=== PATIENT | male | born 1995 | race American Indian/Alaskan Native ===

== ENCOUNTER 2019-12-14 12:18 | Emergency (ER) | payer SELFPAY ==
[2019-12-14] MEDS ORDERED: Ketorolac 60 MG/2 ML SDV IM ONE (12:48)
[2019-12-14] MEDS ORDERED: Diazepam 5 MG Tab PO ONE (12:48)
--- NOTE | 2019-12-14 13:13 | EDM.PDOC ---
ED HPI GENERAL MEDICAL PROBLEM - General Chief Complaint: Back Pain or Injury Stated Complaint: LOWER BACK PAIN Time Seen by Provider: 12/14/19 12:45 Source of Information: Reports: Patient - History of Present Illness INITIAL COMMENTS - FREE TEXT/NARRATIVE: Dao is a 24 y/o male who comes to the ER today with lower back pain. The pain started on Thursday when he slipped while walking. He has since then been having spasm like pain in his lower back and it hurts to move. He has taken one dose of Tylenol that has not helped much. Also been using a heating pad, but not much help. Lower Back Pain Score (Numeric/FACES): 7 - Related Data Allergies Allergy/AdvReac Type Severity Reaction Status Date / Time No Known Allergies Allergy Verified 12/14/19 12:33 Home Meds: Home Meds Cyclobenzaprine [Flexeril] 10 mg PO TID PRN #30 tab 12/14/19 [Rx] Ibuprofen 800 mg PO Q8H #90 tablet 12/14/19 [Rx] Past Medical History - Past Health History Medical/Surgical History: Denies Medical/Surgical History Social & Family History - Tobacco Use Smoking Status *Q: Current Every Day Smoker Years of Tobacco use: 7 Packs/Tins Daily: 0.5 - Recreational Drug Use Recreational Drug Use: No Review of Systems - Review of Systems Review Of Systems: See Below Constitutional: Reports: No Symptoms Eyes: Reports: No Symptoms Ears: Reports: No Symptoms Nose: Reports: No Symptoms Mouth/Throat: Reports: No Symptoms Respiratory: Reports: No Symptoms Cardiovascular: Reports: No Symptoms GI/Abdominal: Reports: No Symptoms Genitourinary: Reports: No Symptoms Musculoskeletal: Reports: Back Pain, Muscle Pain Skin: Reports: No Symptoms Neurological: Reports: No Symptoms. Denies: Numbness, Tingling, Weakness Psychiatric: Reports: No Symptoms ED EXAM, GENERAL - Physical Exam Exam: See Below General Appearance: Alert, WD/WN, No Apparent Distress Ears: Normal External Exam Nose: Normal Inspection Throat/Mouth: Normal Voice, No Airway Compromise Head: Atraumatic, Normocephalic Neck: Normal Inspection Respiratory/Chest: No Respiratory Distress Cardiovascular: Regular Rate, Rhythm GI/Abdominal: Soft, Non-Tender (Male) Exam: Deferred Rectal (Males) Exam: Deferred Back Exam: Muscle Spasm (lower bilateral back region, + muscle tightness), Other (Able to walk, appears to have back when walking). No: Vertebral Tenderness Extremities: Normal Inspection, Normal Range of Motion, Normal Capillary Refill Neurological: Alert, Oriented, CN II-XII Intact, Normal Cognition Psychiatric: Normal Affect, Normal Mood Skin Exam: Warm, Intact, Normal Color Lymphatic: No Adenopathy Course - Vital Signs Text/Narrative:: The patient was seen by the FEATHER EDGER. He was given Toradol 60 mg IM and Valum 10mg po. 1330 Patient rested and reported improvement in his pain and spasms. Discussed instructions for home care. Reviewed warning sx and when to return. Will treat him with muscle relaxers and NSAIDs and if he is not improving in the next 5-7 days, he can return or see his PCP and we can consider imaging at that time. He left the ER in stable condition. Last Recorded V/S: Last Vital Signs Temp 36.9 C 12/14/19 12:25 Pulse 86 12/14/19 12:25 Resp 16 12/14/19 12:25 BP 143/87 H 12/14/19 12:25 Pulse Ox 98 12/14/19 12:25 - Orders/Labs/Meds Meds: Medications Discontinued Medications Generic Name Dose Route Start Last Admin Trade Name Freq PRN Reason Stop Dose Admin Diazepam 10 mg 12/14/19 12:48 12/14/19 12:54 Valium. PO 12/14/19 12:49 10 mg ONETIME ONE Administration Ketorolac Tromethamine 60 mg 12/14/19 12:48 12/14/19 12:54 Toradol IM 12/14/19 12:49 60 mg ONETIME ONE Administration Departure - Departure Time of Disposition: 13:30 Disposition: Home, Self-Care 01 Condition: Good Clinical Impression: Muscle spasm of back - Discharge Information *PRESCRIPTION DRUG MONITORING PROGRAM REVIEWED*: Not Applicable *COPY OF PRESCRIPTION DRUG MONITORING REPORT IN PATIENT TABATHA: Not Applicable Prescriptions: Cyclobenzaprine [Flexeril] 10 mg PO TID PRN #30 tab PRN Reason: Muscle Spasm Ibuprofen 800 mg PO Q8H #90 tablet Instructions: Muscle Cramps and Spasms, Muscle Strain, [id number] Forms: ED Department Discharge, ED Return to Work/School Form Additional Instructions: -Ibuprofen 800mg oral very 8 hours for the next 5-7 days then as needed #90(Rx) -Cyclobenzaprine 10mg oral every 8 hours as needed for muscle spasms #30(Rx) This medication may make you drowsy. -Apply ice or heat to the lower back region or alternate the two. -Rest as needed, but light walking and gentle stretching may help you feel better sooner. -Consider massage therapy or a chiropractic treatment -If you are not improving, establish care with a primary care provider for further evaluation. Sepsis Event Note - Evaluation Sepsis Screening Result: No Definite Risk - Focused Exam Vital Signs: Vital Signs Temp Pulse Resp BP Pulse Ox 12/14/19 12:25 36.9 C 86 16 143/87 H 98 Date Exam was Performed: 12/14/19 Time Exam was Performed: 12:55
== END 2019-12-14 13:49 | disposition home or self-care (01) ==
LOC: VM.ED 12:18
DX: M62.830 Muscle spasm of back (principal); F17.210 Nicotine dependence, cigarettes, uncomplicated
CPT/HCPCS: 96372; 99283; A9270; J1885

== ENCOUNTER 2020-01-03 15:10 | Emergency (ER) | payer SELFPAY ==
[2020-01-03] MEDS ORDERED: Morphine 4 MG/ML Syringe IVPUSH ONE (15:20)
[2020-01-03] MEDS ORDERED: Cyclobenzaprine 10 MG Tab PO ONE (15:21)
--- NOTE | 2020-01-03 16:28 | CT ---
[id number] CT/CT Lumbar Spine WO IV Exam: CT Lumbar Spine WO IV Indication:FALL,RADICULOPATHY ON RIGHT. Comparison: No prior imaging for comparison. Discussion: No acute fracture or compression deformity. Chronic mild anterior wedging of T12. No spondylolisthesis. Spondylosis at L3-4 through L5-S1 with degenerative disc disease, disc osteophyte complex formation, and intervertebral disc height loss. Additionally, there is a possible right paracentral/foraminal disc protrusion at L4-5. Correlate for right L4 radiculopathy. If findings are clinically equivocal, noncontrast MRI of the lumbar spine is recommended. Visualized viscera in the lower abdomen and pelvis is unremarkable. Impression: No acute fracture or compression deformity. Lumbar spondylosis with a possible right L4-5 paracentral/foraminal disc protrusion described above with recommendations. Frank Cutler MD 01/03/20 [id number] Thank you for allowing us to participate in the care of your patient.
[2020-01-03] MEDS ORDERED: methylPREDNISolone Sodium Succinate 125 MG/2 ML SDV IVPUSH ONE (16:34)
--- NOTE | 2020-01-03 16:43 | EDM.PDOC ---
ED HPI GENERAL MEDICAL PROBLEM - General Chief Complaint: Back Pain or Injury Stated Complaint: BACK PAIN Time Seen by Provider: 01/03/20 15:20 Source of Information: Reports: Patient History Limitations: Reports: No Limitations - History of Present Illness INITIAL COMMENTS - FREE TEXT/NARRATIVE: Pt presents with severe low back pain Began 2 weeks ago after slipped and fell and landed on his back Pain is progressively worse Now extends down right leg Pain goes down to level of knee No previous hx/o same Onset: Gradual Duration: Day(s): Location: Reports: Back Quality: Reports: Stabbing Severity: Severe Improves with: Reports: Immobilization Worsens with: Reports: Movement Context: Reports: Trauma Treatments [employer]: Reports: NSAIDS Right Lower Back Pain Score (Numeric/FACES): 10 - Related Data Allergies Allergy/AdvReac Type Severity Reaction Status Date / Time No Known Allergies Allergy Verified 01/03/20 15:34 Home Meds: Home Meds Cyclobenzaprine [Flexeril] 10 mg PO TID PRN #30 tab 12/14/19 [Rx] Ibuprofen 800 mg PO Q8H #90 tablet 12/14/19 [Rx] Past Medical History - Past Health History Medical/Surgical History: Denies Medical/Surgical History Social & Family History - Tobacco Use Smoking Status *Q: Current Every Day Smoker Years of Tobacco use: 10 Packs/Tins Daily: 0.5 - Alcohol Use Days Per Week of Alcohol Use: 5 Number of Drinks Per Day: 3 Total Drinks Per Week: 15 - Recreational Drug Use Recreational Drug Use: Yes Drug Use in Last 12 Months: Yes Recreational Drug Type: Reports: Marijuana/Hashish Recreational Drug Use Frequency: Socially ED ROS GENERAL - Review of Systems Review Of Systems: See Below Musculoskeletal: Reports: Back Pain Neurological: Reports: Difficulty Walking ED EXAM,LOWER BACK PAIN/INJURY - Physical Exam Exam: See Below Back Exam: Muscle Spasm, Paraspinal Tenderness Neurological: Straight Leg Raise (R), Difficulty Walking Course - Vital Signs Last Recorded V/S: Last Vital Signs Temp 98.5 F 01/03/20 15:41 Pulse 108 H 01/03/20 15:41 Resp 16 01/03/20 15:41 BP 135/69 01/03/20 15:41 Pulse Ox 97 01/03/20 15:41 - Orders/Labs/Meds Meds: Medications Discontinued Medications Generic Name Dose Route Start Last Admin Trade Name Patt PRN Reason Stop Dose Admin Cyclobenzaprine HCl 10 mg 01/03/20 15:21 01/03/20 15:36 Flexeril PO 01/03/20 15:22 10 mg ONETIME ONE Administration Methylprednisolone Sodium Succinate 125 mg 01/03/20 16:34 Solu-Medrol IVPUSH 01/03/20 16:35 ONETIME ONE Morphine Sulfate 4 mg 01/03/20 15:20 01/03/20 15:36 Morphine IVPUSH 01/03/20 15:21 4 mg ONETIME ONE Administration - Re-Assessments/Exams Free Text/Narrative Re-Assessment/Exam: 01/03/20 16:[address] report Pt given IV 4 mg Morphine, 10 mg PO Flexeril and Solu-medrol 125 mg IV in ER Departure - Departure Time of Disposition: 17:00 Disposition: Home, Self-Care 01 Clinical Impression: Lumbar pain with radiation down right leg - Discharge Information *PRESCRIPTION DRUG MONITORING PROGRAM REVIEWED*: Not Applicable *COPY OF PRESCRIPTION DRUG MONITORING REPORT IN PATIENT TABATHA: Not Applicable Instructions: Acute Back Pain, Adult, Radicular Pain Referrals: PCP,None [Primary Care Provider] - Additional Instructions: Follow up in clinic Rx Medrol Dose Ji Rx Flexeril 10 mg TID prn spasm Rx Hydrocodone 5/325 1 pill every 6 hours for pain Sepsis Event Note - Evaluation Sepsis Screening Result: No Definite Risk - Focused Exam Vital Signs: Vital Signs Temp Pulse Resp BP Pulse Ox 01/03/20 15:41 98.5 F 108 H 16 135/69 97 Date Exam was Performed: 01/03/20 Time Exam was Performed: 16:37
== END 2020-01-03 17:04 | disposition home or self-care (01) ==
LOC: EEVIPCON 15:10 → VM.ED 15:10 → SUPCPDRO 15:10 → VM.ED 17:04
DX: M54.16 Radiculopathy, lumbar region (principal); F17.210 Nicotine dependence, cigarettes, uncomplicated
CPT/HCPCS: 72131; 96374; 96375; 99283-25; 99283-GF; A9270-GY; J2270; J2930

== ENCOUNTER 2020-02-02 06:07 | Emergency (ER) | payer MEDICAID, OTHER ==
[2020-02-02] MEDS: Lidocaine 1% 30 ML SDV INJECT ONE (06:50)
[2020-02-02] MEDS: Bupivacaine 0.5% 30 ML SDV INJECT PRN (06:50)
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
[2020-02-02] MEDS: Diphtheria,Pertussis(Acell),Tetanus Vaccine 0.5 ML Syringe IM ONE (07:47)
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
== END 2020-02-02 07:40 | disposition home or self-care (01) ==
LOC: VM.ED 06:07
DX: S61.412A Laceration without foreign body of left hand, initial encounter (principal); S60.221A Contusion of right hand, initial encounter; F17.210 Nicotine dependence, cigarettes, uncomplicated; F10.920 Alcohol use, unspecified with intoxication, uncomplicated; Z23 Encounter for immunization; W22.01XA Walked into wall, initial encounter
CPT/HCPCS: 12002; 73130-LT; 73130-RT; 90471; 90715; 99283-25; J2001; J3490

== ENCOUNTER 2020-09-15 03:55 | Emergency (ER) | payer SELFPAY ==
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
== END 2020-09-15 04:20 | disposition other institution (70) ==
LOC: VM.ED 03:55
DX: S00.83XA Contusion of other part of head, initial encounter (principal); S60.512A Abrasion of left hand, initial encounter; S60.511A Abrasion of right hand, initial encounter; W10.9XXA Fall (on) (from) unspecified stairs and steps, initial encounter
CPT/HCPCS: 99283; 99284

== ENCOUNTER 2021-07-08 04:29 | Inpatient (IN) | payer MEDICAID ==
[2021-07-08] MEDS ORDERED: Ondansetron 4 MG/2 ML SDV IVPUSH ONE (04:31)
[2021-07-08] MEDS ORDERED: HYDROmorphone 1 MG/ML Syringe IVPUSH ONE (04:31)
[2021-07-08] MEDS ORDERED: Sodium Chloride 0.9% 1,000 ML IV SCH (04:45)
[2021-07-08 05:06] LABS: CHLORIDE,CL 103 mmol/L (98-107); SODIUM,NA 140 mmol/L (136-145)
[2021-07-08 05:13] LABS: ANION GAP 12.2 mmol/L (5-15)
[2021-07-08] MEDS ORDERED: Morphine 4 MG/ML Syringe IVPUSH ONE ×2 (05:43→06:56)
--- NOTE | 2021-07-08 06:33 | EDM.PDOC ---
ED HPI GENERAL MEDICAL PROBLEM - General Chief Complaint: Abdominal Pain Stated Complaint: abdominal pain - severe Time Seen by Provider: 07/08/21 04:29 Source of Information: Reports: Patient History Limitations: Reports: No Limitations - History of Present Illness INITIAL COMMENTS - FREE TEXT/NARRATIVE: Pt. presents to ER with complaints of severe upper abdominal pain that started 2 days ago. Pt. has a history of alcoholism and is a daily drinker. He states that he drinks large amounts of vodka daily, the last time was 2 days ago. It was at that time that the discomfort started. He states that he does start to feel agitated and get "the shakes" if he does not drink. Pt. states that he has never had pain like this in the past. Pt. denies any fever or chills. No shortness of breath or substernal chest pain. Denies any bloody or tarry stools. He denies any lightheadedness or weakness. Onset: Today Onset Date: 07/06/21 Location: Reports: Abdomen Quality: Reports: Burning, Sharp, Stabbing Severity: Severe Abdomen Pain Score (Numeric/FACES): 10 - Related Data Allergies Allergy/AdvReac Type Severity Reaction Status Date / Time No Known Allergies Allergy Verified 09/15/20 04:41 Home Meds: Home Meds . [No Known Home Meds] 09/15/20 [History] Past Medical History - Past Health History Medical/Surgical History: Denies Medical/Surgical History Musculoskeletal History: Reports: Back Pain, Chronic Social & Family History - Tobacco Use Tobacco Use Status *Q: Current Every Day Tobacco User Years of Tobacco use: 10 Packs/Tins Daily: 1 - Alcohol Use Days Per Week of Alcohol Use: 7 Number of Drinks Per Day: 3 Total Drinks Per Week: 21 Date of Last Drink: 07/07/21 - Recreational Drug Use Recreational Drug Use: No ED ROS GENERAL - Review of Systems Review Of Systems: See Below Constitutional: Reports: No Symptoms, Decreased Appetite HEENT: Reports: No Symptoms Respiratory: Reports: No Symptoms Cardiovascular: Reports: No Symptoms Endocrine: Reports: No Symptoms GI/Abdominal: Reports: Abdominal Pain, Anorexia, Decreased Appetite : Reports: No Symptoms Musculoskeletal: Reports: No Symptoms Skin: Reports: No Symptoms Neurological: Reports: No Symptoms Psychiatric: Reports: No Symptoms Hematologic/Lymphatic: Reports: No Symptoms Immunologic: Reports: No Symptoms ED EXAM, GENERAL - Physical Exam Exam: See Below Exam Limited By: No Limitations General Appearance: Alert, WD/WN, No Apparent Distress Nose: Normal Inspection, Normal Mucosa, No Blood Throat/Mouth: Normal Inspection, Normal Lips, Normal Teeth, Normal Gums, Normal Oropharynx, Normal Voice, No Airway Compromise Head: Atraumatic, Normocephalic Neck: Normal Inspection, Supple, Non-Tender, Full Range of Motion Respiratory/Chest: No Respiratory Distress, Lungs Clear, Normal Breath Sounds, No Accessory Muscle Use, Chest Non-Tender Cardiovascular: Normal Peripheral Pulses, Regular Rate, Rhythm, No Edema, No JVD Peripheral Pulses: 4+: Radial (L) GI/Abdominal: Normal Bowel Sounds, Guarding, Rigid, Tender (Male) Exam: Deferred Rectal (Males) Exam: Deferred Extremities: Normal Inspection, Normal Range of Motion, Non-Tender, No Pedal Edema, Normal Capillary Refill Neurological: Alert, Oriented, CN II-XII Intact, Normal Cognition, Normal Gait, Normal Reflexes, No Motor/Sensory Deficits Psychiatric: Normal Affect, Normal Mood Skin Exam: Warm, Dry, Intact, Normal Color, No Rash Course - Vital Signs Last Recorded V/S: Last Vital Signs Temp 36.6 C 07/08/21 06:03 Pulse 73 07/08/21 09:30 Resp 12 07/08/21 09:30 BP 134/100 H 07/08/21 06:03 Pulse Ox 97 07/08/21 09:30 - Orders/Labs/Meds Orders: Active Orders 24 hr Category Date Time Status Abdomen Pelvis w Cont [CT] Stat Exams 07/08/21 05:16 Ordered Sodium Chloride 0.9% [Saline Flush] Med 07/08/21 04:30 Active 10 ml FLUSH ASDIRECTED PRN Peripheral IV Insertion Adult [OM.PC] Routine Oth 07/08/21 04:30 Ordered Medication Orders Flumazenil (Flumazenil 0.1 Mg/Ml 5 Ml Mdv) 0.2 mg IVPUSH ASDIRECTED PRN PRN Reason: Respiratory Depression Hydromorphone HCl (Hydromorphone 1 Mg/Ml Syringe) 1 mg IVPUSH Q4H PRN PRN Reason: Pain Last Admin: 07/08/21 09:20 Dose: 1 mg Documented by: ROSE MARIE Magnesium Sulfate 2 gm/ Premix 50 mls @ 25 mls/hr IV ONETIME ONE Stop: 07/08/21 10:30 Last Admin: 07/08/21 09:34 Dose: 25 mls/hr Documented by: ROSE MARIE Potassium Chloride/Sodium Chloride (Normal Saline With 20 Meq Kcl) 1,000 mls @ 125 mls/hr IV ASDIRECTED JAGUAR Lorazepam (Lorazepam 2 Mg/Ml Sdv) 0.5 mg IVPUSH Q4H PRN PRN Reason: Anxiety Ondansetron HCl (Ondansetron 4 Mg/2 Ml Sdv) 4 mg IVPUSH Q8H PRN PRN Reason: Nausea Pantoprazole Sodium (Pantoprazole 40 Mg Vial) 40 mg IVPUSH DAILY [facility] Last Admin: 07/08/21 09:25 Dose: 40 mg Documented by: ROSE MARIE Sodium Chloride (Sodium Chloride 0.9% 10 Ml Syringe) 10 ml FLUSH ASDIRECTED PRN PRN Reason: Keep Vein Open Labs: Laboratory Tests 07/08/21 07/08/21 07/08/21 Range/Units 04:30 04:30 04:30 WBC 12.0 H (4.0-10.0) x10^3/uL RBC 5.28 (4.5-6.0) x10^6/uL Hgb 17.1 (14.0-18.0) g/dL Hct 48.4 (40.0-52.0) % MCV 91.7 (78.0-93.0) fL MCH 32.4 H (26.0-32.0) pg MCHC 35.3 (32.0-36.0) g/dL RDW Coeff of Claudio 12.2 (10.0-15.0) % Plt Count 186 (130-400) x10^3/uL Immature Gran % (Auto) 0.20 (0.00-0.43) % Neut % (Auto) 68.9 (50.0-80.0) % Lymph % (Auto) 17.9 L (25.0-50.0) % Polk % (Auto) 9.8 (2.0-11.0) % Eos % (Auto) 2.9 (0.0-4.0) % Baso % (Auto) 0.3 (0.2-1.2) % Neut # (Auto) 8.3 H (1.8-7.7) x10^3/uL Lymph # (Auto) 2.2 (1.0-4.8) x10^3/uL Polk # (Auto) 1.2 H (0.0-0.8) x10^3/uL Eos # (Auto) 0.4 (0.0-0.5) x10^3/uL Baso # (Auto) 0.0 (0.0-0.2) x10^3/uL Immature Gran # (Auto) 0.02 (0.00-0.07) x10^3/uL PT 10.8 (9.9-12.5) SEC INR 1.0 L (2.0-3.5) APTT (25.6-32.8) SEC Sodium 140 (136-145) mmol/L Potassium 3.2 L (3.5-5.1) mmol/L Chloride 103 (98-107) mmol/L Carbon Dioxide 28 (21-32) mmol/L Anion Gap 12.2 (5-15) mmol/L BUN 9 (7-18) mg/dL Creatinine 0.9 (0.70-1.30) mg/dL Est Cr Clr Drug Dosing TNP Estimated GFR (MDRD) > 60 Glucose 106 H (70-99) mg/dL Lactic Acid (0.4-2.0) mmol/L Calcium 8.9 (8.5-10.1) mg/dL Corrected Calcium 9.1 (8.5-10.1) mg/dL Phosphorus 3.4 (2.6-4.7) mg/dL Magnesium 1.5 L (1.8-2.4) mg/dL Total Bilirubin 1.5 H (0.2-1.0) mg/dL AST 63 H (15-37) U/L ALT 106 H (16-63) U/L Alkaline Phosphatase 99 (46-116) U/L C-Reactive Protein 3.8 H (<=0.9) mg/dL Total Protein 7.1 (6.4-8.2) g/dL Albumin 3.8 (3.4-5.0) g/dL Globulin 3.3 Albumin/Globulin Ratio 1.15 Lipase 7193 H (73-393) U/L Ethyl Alcohol < 3 (0-3) mg/dL 07/08/21 07/08/21 Range/Units 04:30 04:30 WBC (4.0-10.0) x10^3/uL RBC (4.5-6.0) x10^6/uL Hgb (14.0-18.0) g/dL Hct (40.0-52.0) % MCV (78.0-93.0) fL MCH (26.0-32.0) pg MCHC (32.0-36.0) g/dL RDW Coeff of Claudio (10.0-15.0) % Plt Count (130-400) x10^3/uL Immature Gran % (Auto) (0.00-0.43) % Neut % (Auto) (50.0-80.0) % Lymph % (Auto) (25.0-50.0) % Polk % (Auto) (2.0-11.0) % Eos % (Auto) (0.0-4.0) % Baso % (Auto) (0.2-1.2) % Neut # (Auto) (1.8-7.7) x10^3/uL Lymph # (Auto) (1.0-4.8) x10^3/uL Polk # (Auto) (0.0-0.8) x10^3/uL Eos # (Auto) (0.0-0.5) x10^3/uL Baso # (Auto) (0.0-0.2) x10^3/uL Immature Gran # (Auto) (0.00-0.07) x10^3/uL PT (9.9-12.5) SEC INR (2.0-3.5) APTT 26.5 (25.6-32.8) SEC Sodium (136-145) mmol/L Potassium (3.5-5.1) mmol/L Chloride (98-107) mmol/L Carbon Dioxide (21-32) mmol/L Anion Gap (5-15) mmol/L BUN (7-18) mg/dL Creatinine (0.70-1.30) mg/dL Est Cr Clr Drug Dosing Estimated GFR (MDRD) Glucose (70-99) mg/dL Lactic Acid 1.4 (0.4-2.0) mmol/L Calcium (8.5-10.1) mg/dL Corrected Calcium (8.5-10.1) mg/dL Phosphorus (2.6-4.7) mg/dL Magnesium (1.8-2.4) mg/dL Total Bilirubin (0.2-1.0) mg/dL AST (15-37) U/L ALT (16-63) U/L Alkaline Phosphatase (46-116) U/L C-Reactive Protein (<=0.9) mg/dL Total Protein (6.4-8.2) g/dL Albumin (3.4-5.0) g/dL Globulin Albumin/Globulin Ratio Lipase (73-393) U/L Ethyl Alcohol (0-3) mg/dL Meds: Medications Generic Name Dose Route Start Last Admin Trade Name Freq PRN Reason Stop Dose Admin Flumazenil 0.2 mg 07/08/21 08:36 Flumazenil 0.1 Mg/Ml 5 Ml Mdv IVPUSH ASDIRECTED PRN Respiratory Depression Hydromorphone HCl 1 mg 07/08/21 08:33 07/08/21 09:20 Hydromorphone 1 Mg/Ml Syringe IVPUSH 1 mg Q4H PRN Administration Pain Magnesium Sulfate 2 gm/ Premix 50 mls @ 25 mls/hr 07/08/21 08:31 07/08/21 09:34 IV 07/08/21 10:30 25 mls/hr ONETIME ONE Administration Potassium Chloride/Sodium Chloride 1,000 mls @ 125 mls/hr 07/08/21 08:45 Normal Saline With 20 Meq Kcl IV ASDIRECTED JAGUAR Lorazepam 0.5 mg 07/08/21 08:36 Lorazepam 2 Mg/Ml Sdv IVPUSH Q4H PRN Anxiety Ondansetron HCl 4 mg 07/08/21 08:33 Ondansetron 4 Mg/2 Ml Sdv IVPUSH Q8H PRN Nausea Pantoprazole Sodium 40 mg 07/08/21 09:15 07/08/21 09:25 Pantoprazole 40 Mg Vial IVPUSH 40 mg DAILY JAGUAR Administration Sodium Chloride 10 ml 07/08/21 04:30 Sodium Chloride 0.9% 10 Ml Syringe FLUSH ASDIRECTED PRN Keep Vein Open Discontinued Medications Generic Name Dose Route Start Last Admin Trade Name Patt PRN Reason Stop Dose Admin Hydromorphone HCl 1 mg 07/08/21 04:31 07/08/21 04:45 Hydromorphone 1 Mg/Ml Syringe IVPUSH 07/08/21 04:32 1 mg ONETIME ONE Administration Sodium Chloride 1,000 mls @ 500 mls/hr 07/08/21 04:45 Normal Saline IV ASDIRECTED JAGUAR Ketorolac Tromethamine 15 mg 07/08/21 06:49 07/08/21 07:03 Ketorolac 15 Mg/Ml Sdv IVPUSH 07/08/21 06:50 15 mg ONETIME ONE Administration Morphine Sulfate 4 mg 07/08/21 05:43 07/08/21 06:00 Morphine 4 Mg/Ml Syringe IVPUSH 07/08/21 05:44 4 mg ONETIME ONE Administration Morphine Sulfate 4 mg 07/08/21 06:56 07/08/21 07:04 Morphine 4 Mg/Ml Syringe IVPUSH 07/08/21 06:57 4 mg ONETIME ONE Administration Ondansetron HCl 4 mg 07/08/21 04:31 07/08/21 04:50 Ondansetron 4 Mg/2 Ml Sdv IVPUSH 07/08/21 04:32 4 mg ONETIME ONE Administration - Radiology Interpretation Free Text/Narrative:: CT abdomen and pelvis obtained with contrast. Findings consistent with acute pancreatitis. Gallbladder and bile ducts are unremarkable. Hepatic steatosis noted. Departure - Departure Time of Disposition: 07:15 Disposition: Admitted As Inpatient 64 Clinical Impression: Pancreatitis - Discharge Information Sepsis Event Note (ED) - Evaluation Sepsis Screening Result: No Definite Risk - Focused Exam Vital Signs: Vital Signs Temp Pulse Resp BP Pulse Ox 07/08/21 06:03 36.6 C 97 18 134/100 H 97 - Problem List Review Problem List Initiated/Reviewed/Updated: Yes - My Orders Last 24 Hours: My Active Orders 07/08/21 04:30 Sodium Chloride 0.9% [Saline Flush] 10 ml FLUSH ASDIRECTED PRN Peripheral IV Insertion Adult [OM.PC] Routine 07/08/21 05:16 Abdomen Pelvis w Cont [CT] Stat - Assessment/Plan Last 24 Hours: My Active Orders 07/08/21 04:30 Sodium Chloride 0.9% [Saline Flush] 10 ml FLUSH ASDIRECTED PRN Peripheral IV Insertion Adult [OM.PC] Routine 07/08/21 05:16 Abdomen Pelvis w Cont [CT] Stat Plan: Pt. admitted acutely by Dr. Lomeli. He has gotten care from Dr. Smiley in the past. He is a full code. Order for gallbladder ultrasound was placed for today. All questions were answered.
[2021-07-08] MEDS ORDERED: Ketorolac 15 MG/ML SDV IVPUSH ONE (06:49)
[2021-07-08] MEDS ORDERED: Magnesium Sulfate/Water 2 GM in Premix Bag 1 BAG IV ONE (08:31)
[2021-07-08] MEDS ORDERED: HYDROmorphone 1 MG/ML Syringe IVPUSH PRN (08:33)
[2021-07-08] MEDS ORDERED: Flumazenil 0.1 MG/ML 5 ML MDV IVPUSH PRN (08:36)
[2021-07-08] MEDS: Pantoprazole 40 MG Vial IVPUSH SCH (09:25)
[2021-07-08] MEDS: NS + KCl 20mEq/L 1,000 ML IV SCH ×2 (11:51→19:57)
[2021-07-08] MEDS: LORazepam 2 MG/ML SDV IVPUSH PRN (11:57)
[2021-07-08] MEDS: HYDROmorphone 1 MG/ML Syringe IVPUSH PRN ×3 (12:11→20:34)
--- NOTE | 2021-07-08 14:29 | CT ---
[id number] CT/CT Abdomen Pelvis W IV EXAM: CT Abdomen Pelvis W IV CLINICAL DATA: UPPER ABDOMINAL PAIN, ELEVATED WHITE COUNT. COMPARISON STUDY: None. FINDINGS: Peripancreatic fat stranding consistent with acute pancreatitis. No evidence of pancreas necrosis. No other complicating features such as pseudocyst, vascular pseudoaneurysm, or other findings. Liver demonstrates changes of diffuse steatosis. No focal lesion or biliary ductal dilation. Gallbladder and common bile duct are unremarkable. Spleen, adrenal glands, and kidneys are normal. No bowel obstruction or inflammation. Appendix is normal. Urinary bladder is normal. No lymphadenopathy. IMPRESSION: Acute uncomplicated pancreatitis. Diffuse hepatic steatosis. Frank Cutler MD 07/08/21 [id number] Thank you for allowing us to participate in the care of your patient.
--- NOTE | 2021-07-08 14:30 | US ---
[id number] US/US Abdomen Limited Exam: US Abdomen Limited Indication:PANCREATITIS. Comparison: CT from same date. Discussion/Impression: Liver demonstrates changes of diffuse steatosis. No focal lesion or biliary ductal dilation. Gallbladder, bile duct are unremarkable. Pancreas and IVC were not visualized. Aorta and right kidney are unremarkable. No ascites. Frank Cutler MD 07/08/21 [id number] Thank you for allowing us to participate in the care of your patient.
[2021-07-08] MEDS: Sodium Chloride 0.9% 10 ML Syringe FLUSH PRN (14:53)
[2021-07-08] MEDS: Thiamine 200 MG/2 ML MDV IV SCH (14:53)
[2021-07-08] MEDS: Enoxaparin 40 MG/0.4 ML Syringe SUBCUT SCH (19:57)
--- NOTE | 2021-07-08 20:45 | HP ---
CHIEF COMPLAINT: Abdominal pain and vomiting. HISTORY OF PRESENT ILLNESS: This is a 26-year-old male, who drinks approximately 10 vodka, 40 proof drinks per day. He has quit for up to 6 months before in the past, but now he is drinking daily. He had abdominal pain, so stopped drinking 2 days ago. He has not had any significant withdrawals. Never a seizure. He is not overly shaky now because he is resting after getting pain pills. He has not thrown up any blood. He has not had any black or bloody stools. He has not had any cough, fever, chills, lightheadedness, or dizziness. ALLERGIES: None. MEDICATIONS: He reports no regular medications being used. PAST MEDICAL HISTORY: He has had some back pain due to injuries and otherwise been doctoring. SOCIAL HISTORY: He smokes every day. He denies any illicit or illegal drug use. He states he started drinking after some problems with his ex-. He is currently , but no children. He works at [employer]. FAMILY HISTORY: Not obtained. REVIEW OF SYSTEMS: General: He is not aware of any weight changes. HEENT: No sore throat. No trouble swallowing. Cardiac: No chest pain. No palpitations. Respiratory: No shortness of breath. GI: As stated in HPI. : No trouble with urination. Musculoskeletal: No new aches or pains. Psychiatric: He has not had any confusion. Otherwise, all systems reviewed and found to be negative. PHYSICAL EXAMINATION: Vital Signs: At the time of admission, his temperature was 97.8, weight 108.8 kg, pulse 97, blood pressure 134/100, came down to 152/93 when pain was under better control, respiratory rate 18, and O2 of 97% on room air. General: He is in no acute distress. Heart: Regular rate and rhythm. S1, S2 without murmur. Lungs: Lung sounds are clear to auscultation bilaterally without crackles or wheezes. Abdomen: Had positive bowel sounds. It is soft, nondistended, but tender, especially in the mid epigastric area. There is no rebound. No guarding. Extremities: Warm and dry. No edema. Skin: No bruising, no petechiae. Mental Status: He is alert. He is oriented x3. LABORATORY WORK: Shows white count 12, hemoglobin 17.1, platelets 186. INR 1. Sodium 140, potassium 3.2, chloride 103, bicarb 28, BUN 9, creatinine 0.9, glucose 106, calcium 8.9, phosphorus 3.4, magnesium 1.5, bili 1.5, AST 63, ALT 106, alk phos 99, CRP 3.8, albumin 3.8, lipase 7193. Alcohol less than 3. COVID negative. Lactic 1.4, PTT 26.5. DIAGNOSTIC DATA: CT abdomen showed acute pancreatitis. Gallbladder and bile ducts without acute findings and hepatic steatosis noted. He got hydromorphone, morphine, Toradol, and Zofran in the ER. ASSESSMENT: 1. Acute pancreatitis, likely due to alcohol. We will also get a gallbladder ultrasound. We will keep him n.p.o. We will do pain control with IV Dilaudid. We will give him intravenous fluids and intravenous nausea medications. 2. Hypokalemia. We will replace intravenous as the patient n.p.o. 3. Hypomagnesemia. We will replace intravenous. We will repeat lab work tomorrow. 4. Alcohol abuse and risk for withdrawal. We will put him on [facility] protocols. We will have p.r.n. Ativan available. I will give him some intravenous thiamine for 3 days because he is n.p.o. 5. Epigastric pain, likely due to pancreatitis, but given his drinking and changes found on the CT, I will put him on intravenous Protonix daily until he is able to take oral. 6. Hepatitis, probably due to alcohol, not a severe alcoholic hepatitis. His kidney function is normal. We will continue to monitor liver function tests. 7. Smoking. He declined a nicotine patch. PLAN: The patient is admitted for acute cares. We will have him n.p.o. with IV fluids until his pain improves and then will gradually start a diet. We will have IV nausea medication available. For DVT prophylaxis, I will start him on Lovenox as he has no signs of bleeding. Anticipate he will need at least [address] Smiley has previously been assigned the patient and we will assume care in the morning. He is a code level 1. MKA: 07/08/2021 13:46:23 MODL: 07/08/2021 20:39:13 /[id number]
[2021-07-09] MEDS: HYDROmorphone 1 MG/ML Syringe IVPUSH PRN ×6 (00:46→19:36)
[2021-07-09] MEDS: NS + KCl 20mEq/L 1,000 ML IV SCH ×3 (04:07→19:47)
[2021-07-09 07:12] LABS: CHLORIDE,CL 106 mmol/L (98-107); SODIUM,NA 140 mmol/L (136-145)
[2021-07-09 07:13] LABS: ANION GAP 12.1 mmol/L (5-15)
--- NOTE | 2021-07-09 07:56 | PCM.PN ---
- General Info Date of Service: 07/09/21 Subjective Update: 26 yo hospital day #2 admitted with pancreatitis secondary to alcohol use. Patient states the pain seems worse today. Is still controlled with the current pain medication. No nausea or vomiting. Does not really have an appetite though. No BM x 3 days. No fever. Reports h/o alcohol use disorder. States this is a wake-up call for him and he will not be drinking anymore. - Review of Systems General: Reports: No Symptoms HEENT: Reports: No Symptoms Pulmonary: Reports: No Symptoms Cardiovascular: Reports: No Symptoms Gastrointestinal: Reports: Abdominal Pain, Constipation, Decreased Appetite. Denies: Nausea, Vomiting Genitourinary: Reports: No Symptoms Musculoskeletal: Reports: No Symptoms Skin: Reports: No Symptoms Neurological: Reports: No Symptoms - Patient Data Vitals - Most Recent: Last Vital Signs Temp 37.0 C 07/09/21 06:51 Pulse 80 07/09/21 06:51 Resp 18 07/09/21 06:51 BP 151/94 H 07/09/21 06:51 Pulse Ox 96 07/09/21 06:51 Weight - Most Recent: 104.689 kg I&O - Last 24 Hours: Intake & Output 07/08/21 07/09/21 07/09/21 22:59 06:59 14:59 Intake Total 1800 1500 Balance 1800 1500 Lab Results Last 24 Hours: Laboratory Results - last 24 hr 07/09/21 07/09/21 07/09/21 Range/Units 06:10 06:10 06:10 WBC 14.1 H (4.0-10.0) x10^3/uL RBC 4.95 (4.5-6.0) x10^6/uL Hgb 16.0 (14.0-18.0) g/dL Hct 46.2 (40.0-52.0) % MCV 93.3 H (78.0-93.0) fL MCH 32.3 H (26.0-32.0) pg MCHC 34.6 (32.0-36.0) g/dL RDW Coeff of Claudio 12.3 (10.0-15.0) % Plt Count 138 (130-400) x10^3/uL Immature Gran % (Auto) 0.40 (0.00-0.43) % Neut % (Auto) 85.6 H (50.0-80.0) % Lymph % (Auto) 6.6 L (25.0-50.0) % [place] % (Auto) 6.7 (2.0-11.0) % Eos % (Auto) 0.6 (0.0-4.0) % Baso % (Auto) 0.1 L (0.2-1.2) % Neut # (Auto) 12.1 H (1.8-7.7) x10^3/uL Lymph # (Auto) 0.9 L (1.0-4.8) x10^3/uL [place] # (Auto) 0.9 H (0.0-0.8) x10^3/uL Eos # (Auto) 0.1 (0.0-0.5) x10^3/uL Baso # (Auto) 0.0 (0.0-0.2) x10^3/uL Immature Gran # (Auto) 0.05 (0.00-0.07) x10^3/uL Sodium 140 (136-145) mmol/L Potassium 4.1 (3.5-5.1) mmol/L Chloride 106 (98-107) mmol/L Carbon Dioxide 26 (21-32) mmol/L Anion Gap 12.1 (5-15) mmol/L BUN 9 (7-18) mg/dL Creatinine 0.8 (0.70-1.30) mg/dL Est Cr Clr Drug Dosing 137.47 mL/min Estimated GFR (MDRD) > 60 Glucose 85 (70-99) mg/dL Calcium 8.3 L (8.5-10.1) mg/dL Corrected Calcium 9.2 (8.5-10.1) mg/dL Magnesium 1.7 L (1.8-2.4) mg/dL Total Bilirubin 1.1 H (0.2-1.0) mg/dL AST 28 (15-37) U/L ALT 59 (16-63) U/L Alkaline Phosphatase 82 (46-116) U/L Total Protein 6.3 L (6.4-8.2) g/dL Albumin 2.9 L (3.4-5.0) g/dL Globulin 3.4 Albumin/Globulin Ratio 0.85 Med Orders - Current: Current Medications Enoxaparin Sodium (Enoxaparin 40 Mg/0.4 Ml Syringe) 40 mg SUBCUT BEDTIME [facility] Last Admin: 07/08/21 19:57 Dose: 40 mg Documented by: Flumazenil (Flumazenil 0.1 Mg/Ml 5 Ml Mdv) 0.2 mg IVPUSH ASDIRECTED PRN PRN Reason: Respiratory Depression Hydromorphone HCl (Hydromorphone 1 Mg/Ml Syringe) 2 mg IVPUSH Q4H PRN PRN Reason: Pain Last Admin: 07/09/21 04:10 Dose: 2 mg Documented by: Potassium Chloride/Sodium Chloride (Normal Saline With 20 Meq Kcl) 1,000 mls @ 125 mls/hr IV ASDIRECTED [facility] Last Admin: 07/09/21 04:07 Dose: 125 mls/hr Documented by: Lorazepam (Lorazepam 2 Mg/Ml Sdv) 0.5 mg IVPUSH Q4H PRN PRN Reason: Anxiety Last Admin: 07/08/21 11:57 Dose: 0.5 mg Documented by: Ondansetron HCl (Ondansetron 4 Mg/2 Ml Sdv) 4 mg IVPUSH Q8H PRN PRN Reason: Nausea Pantoprazole Sodium (Pantoprazole 40 Mg Vial) 40 mg IVPUSH DAILY [facility] Last Admin: 07/08/21 09:25 Dose: 40 mg Documented by: Sodium Chloride (Sodium Chloride 0.9% 10 Ml Syringe) 10 ml FLUSH ASDIRECTED PRN PRN Reason: Keep Vein Open Last Admin: 07/08/21 14:53 Dose: 10 ml Documented by: Thiamine HCl (Thiamine 200 Mg/2 Ml Mdv) 100 mg IV DAILY [facility] Stop: 07/10/21 23:00 Last Admin: 07/08/21 14:53 Dose: 100 mg Documented by: Discontinued Medications Hydromorphone HCl (Hydromorphone 1 Mg/Ml Syringe) 1 mg IVPUSH ONETIME ONE Stop: 07/08/21 04:32 Last Admin: 07/08/21 04:45 Dose: 1 mg Documented by: Hydromorphone HCl (Hydromorphone 1 Mg/Ml Syringe) 1 mg IVPUSH Q4H PRN PRN Reason: Pain Last Admin: 07/08/21 09:20 Dose: 1 mg Documented by: Sodium Chloride (Normal Saline) 1,000 mls @ 500 mls/hr IV ASDIRECTED [facility] Magnesium Sulfate 2 gm/ Premix 50 mls @ 25 mls/hr IV ONETIME ONE Stop: 07/08/21 10:30 Last Admin: 07/08/21 09:34 Dose: 25 mls/hr Documented by: Ketorolac Tromethamine (Ketorolac 15 Mg/Ml Sdv) 15 mg IVPUSH ONETIME ONE Stop: 07/08/21 06:50 Last Admin: 07/08/21 07:03 Dose: 15 mg Documented by: Morphine Sulfate (Morphine 4 Mg/Ml Syringe) 4 mg IVPUSH ONETIME ONE Stop: 07/08/21 05:44 Last Admin: 07/08/21 06:00 Dose: 4 mg Documented by: Morphine Sulfate (Morphine 4 Mg/Ml Syringe) 4 mg IVPUSH ONETIME ONE Stop: 07/08/21 06:57 Last Admin: 07/08/21 07:04 Dose: 4 mg Documented by: Ondansetron HCl (Ondansetron 4 Mg/2 Ml Sdv) 4 mg IVPUSH ONETIME ONE Stop: 07/08/21 04:32 Last Admin: 07/08/21 04:50 Dose: 4 mg Documented by: - Exam General: Alert, Oriented, Cooperative, No Acute Distress HEENT: Mucous Membr. Moist/[place] Neck: Supple, Trachea Midline, No Thyromegaly. No: Lymphadenopathy Lungs: Clear to Auscultation, Normal Respiratory Effort Cardiovascular: Regular Rate, Regular Rhythm, No Murmurs GI/Abdominal Exam: Normal Bowel Sounds, Soft, No Organomegaly, No Distention, No Mass, Tender (diffuse but worst in the epigastrium and LUQ; no rebound, rigidity, or guarding) Extremities: Normal Inspection, Normal Range of Motion, Non-Tender, No Pedal Edema, Normal Capillary Refill Peripheral Pulses: 2+: Radial (L), Radial (R) Skin: Warm, Dry, Intact Neurological: No New Focal Deficit - Patient Data Lab Results Last 24 hrs: Laboratory Results - last 24 hr 07/09/21 07/09/21 07/09/21 Range/Units 06:10 06:10 06:10 WBC 14.1 H (4.0-10.0) x10^3/uL RBC 4.95 (4.5-6.0) x10^6/uL Hgb 16.0 (14.0-18.0) g/dL Hct 46.2 (40.0-52.0) % MCV 93.3 H (78.0-93.0) fL MCH 32.3 H (26.0-32.0) pg MCHC 34.6 (32.0-36.0) g/dL RDW Coeff of Claudio 12.3 (10.0-15.0) % Plt Count 138 (130-400) x10^3/uL Immature Gran % (Auto) 0.40 (0.00-0.43) % Neut % (Auto) 85.6 H (50.0-80.0) % Lymph % (Auto) 6.6 L (25.0-50.0) % [place] % (Auto) 6.7 (2.0-11.0) % Eos % (Auto) 0.6 (0.0-4.0) % Baso % (Auto) 0.1 L (0.2-1.2) % Neut # (Auto) 12.1 H (1.8-7.7) x10^3/uL Lymph # (Auto) 0.9 L (1.0-4.8) x10^3/uL [place] # (Auto) 0.9 H (0.0-0.8) x10^3/uL Eos # (Auto) 0.1 (0.0-0.5) x10^3/uL Baso # (Auto) 0.0 (0.0-0.2) x10^3/uL Immature Gran # (Auto) 0.05 (0.00-0.07) x10^3/uL Sodium 140 (136-145) mmol/L Potassium 4.1 (3.5-5.1) mmol/L Chloride 106 (98-107) mmol/L Carbon Dioxide 26 (21-32) mmol/L Anion Gap 12.1 (5-15) mmol/L BUN 9 (7-18) mg/dL Creatinine 0.8 (0.70-1.30) mg/dL Est Cr Clr Drug Dosing 137.47 mL/min Estimated GFR (MDRD) > 60 Glucose 85 (70-99) mg/dL Calcium 8.3 L (8.5-10.1) mg/dL Corrected Calcium 9.2 (8.5-10.1) mg/dL Magnesium 1.7 L (1.8-2.4) mg/dL Total Bilirubin 1.1 H (0.2-1.0) mg/dL AST 28 (15-37) U/L ALT 59 (16-63) U/L Alkaline Phosphatase 82 (46-116) U/L Total Protein 6.3 L (6.4-8.2) g/dL Albumin 2.9 L (3.4-5.0) g/dL Globulin 3.4 Albumin/Globulin Ratio 0.85 Result Diagrams: 07/09/21 06:10 07/09/21 06:10 Sepsis Event Note - Evaluation Sepsis Screening Result: No Definite Risk - Focused Exam Vital Signs: Vital Signs Temp Pulse Resp BP Pulse Ox 07/09/21 06:51 37.0 C 80 18 151/94 H 96 07/09/21 04:20 37.2 C 90 20 128/85 95 07/08/21 22:56 37.4 C 98 22 H 144/86 H 98 - Problem List & Annotations (1) Alcohol use disorder SNOMED Code(s): 1982796 Code(s): RTS8905 - Status: Acute Current Visit: Yes (2) Pancreatitis SNOMED Code(s): 94402847 Code(s): K85.90 - ACUTE PANCREATITIS WITHOUT NECROSIS OR INFECTION, UNSP Status: Acute Current Visit: Yes (3) Hepatitis SNOMED Code(s): 025663947 Code(s): K75.9 - INFLAMMATORY LIVER DISEASE, UNSPECIFIED Status: Acute Current Visit: Yes (4) Hypokalemia SNOMED Code(s): 09859367 Code(s): E87.6 - HYPOKALEMIA Status: Resolved Current Visit: Yes - Problem List Review Problem List Initiated/Reviewed/Updated: Yes - Assessment Assessment:: 26 yo male hospital day #2 admitted with pancreatitis secondary to alcohol use. Stable compared to yesterday. - Plan Plan:: #1 Pancreatitis, secondary to #2 - Patient about the same from yesterday. - Pain and nausea controlled. Continue current regimen. - Continue clear liquids as he is unlikely to tolerate more than that at this point. Will start to advance once pain is improving. - Continue IV fluids as ordered. - U/S done yesterday was negative for cholelithiasis. #2 Alcohol use disorder - Patient states he is done drinking. - However, will plan to get him set up with resources for d/c to help encourage him in these efforts. - Also could consider naltrexone for him as well if he is willing. #3 Hepatitis, secondary to #2 - Liver enzymes much better today. - Will trend daily. #4 Hypokalemia, resolved - Will monitor daily. Patient will remain on acute today. Discussed criteria for d/c would be on oral medications for pain/nausea control and able to take enough PO to stay hydrated. Anticipate d/c home later this week. See detailed plans as above. Code status is full. On lovenox for VTE prophylaxis.
[2021-07-09] MEDS: Thiamine 200 MG/2 ML MDV IV SCH (08:08)
[2021-07-09] MEDS: Pantoprazole 40 MG Vial IVPUSH SCH (08:09)
[2021-07-09] MEDS ORDERED: Polyethylene Glycol 3350 Powder 17 GM Packet PO ONE ×2 (09:22→12:30)
[2021-07-09] MEDS: LORazepam 2 MG/ML SDV IVPUSH PRN (19:34)
[2021-07-09] MEDS: Enoxaparin 40 MG/0.4 ML Syringe SUBCUT SCH (19:37)
[2021-07-10] MEDS: HYDROmorphone 1 MG/ML Syringe IVPUSH PRN ×7 (00:34→21:31)
[2021-07-10] MEDS: LORazepam 2 MG/ML SDV IVPUSH PRN ×3 (00:34→21:06)
[2021-07-10] MEDS: NS + KCl 20mEq/L 1,000 ML IV SCH ×3 (04:21→20:06)
[2021-07-10 07:10] LABS: CHLORIDE,CL 103 mmol/L (98-107); SODIUM,NA 136 mmol/L (136-145)
[2021-07-10 07:16] LABS: ANION GAP 12.2 mmol/L (5-15)
[2021-07-10] MEDS: Pantoprazole 40 MG Vial IVPUSH SCH (08:03)
[2021-07-10] MEDS: Thiamine 200 MG/2 ML MDV IV SCH (08:03)
[2021-07-10] MEDS: Ondansetron 4 MG/2 ML SDV IVPUSH PRN ×2 (08:12→18:32)
--- NOTE | 2021-07-10 10:32 | PCM.PN ---
- General Info Date of Service: 07/10/21 Subjective Update: 26 yo male hospital day #3 admitted with pancreatitis secondary to alcohol use disorder. He states that he is feeling a little better this morning. Still having epigastric pain but not needing the medication as often. Still works when he does receive it. Able to eat a small clear liquid breakfast this morning without any issues. No fever or chills. Still no BM but he is passing gas regularly. Voiding well. - Review of Systems General: Reports: No Symptoms HEENT: Reports: No Symptoms Pulmonary: Reports: No Symptoms Cardiovascular: Reports: No Symptoms Gastrointestinal: Reports: Abdominal Pain, Constipation, Decreased Appetite. Denies: Nausea, Vomiting Genitourinary: Reports: No Symptoms Musculoskeletal: Reports: No Symptoms Skin: Reports: No Symptoms Neurological: Reports: No Symptoms - Patient Data Vitals - Most Recent: Last Vital Signs Temp 36.7 C 07/10/21 10:00 Pulse 90 07/10/21 10:00 Resp 18 07/10/21 10:00 BP 152/81 H 07/10/21 10:00 Pulse Ox 95 07/10/21 10:00 Weight - Most Recent: 104.734 kg I&O - Last 24 Hours: Intake & Output 07/09/21 07/10/21 07/10/21 22:59 06:59 14:59 Intake Total 795 120 Output Total 1000 Balance 795 -1000 120 Lab Results Last 24 Hours: Laboratory Results - last 24 hr 07/10/21 07/10/21 Range/Units 06:30 06:30 WBC 14.1 H (4.0-10.0) x10^3/uL RBC 4.83 (4.5-6.0) x10^6/uL Hgb 15.5 (14.0-18.0) g/dL Hct 44.8 (40.0-52.0) % MCV 92.8 (78.0-93.0) fL MCH 32.1 H (26.0-32.0) pg MCHC 34.6 (32.0-36.0) g/dL RDW Coeff of Claudio 12.0 (10.0-15.0) % Plt Count 119 L (130-400) x10^3/uL Immature Gran % (Auto) 0.30 (0.00-0.43) % Neut % (Auto) 82.7 H (50.0-80.0) % Lymph % (Auto) 7.5 L (25.0-50.0) % [place] % (Auto) 8.3 (2.0-11.0) % Eos % (Auto) 1.1 (0.0-4.0) % Baso % (Auto) 0.1 L (0.2-1.2) % Neut # (Auto) 11.6 H (1.8-7.7) x10^3/uL Lymph # (Auto) 1.1 (1.0-4.8) x10^3/uL [place] # (Auto) 1.2 H (0.0-0.8) x10^3/uL Eos # (Auto) 0.2 (0.0-0.5) x10^3/uL Baso # (Auto) 0.0 (0.0-0.2) x10^3/uL Immature Gran # (Auto) 0.04 (0.00-0.07) x10^3/uL Sodium 136 (136-145) mmol/L Potassium 4.2 (3.5-5.1) mmol/L Chloride 103 (98-107) mmol/L Carbon Dioxide 25 (21-32) mmol/L Anion Gap 12.2 (5-15) mmol/L BUN 9 (7-18) mg/dL Creatinine 0.8 (0.70-1.30) mg/dL Est Cr Clr Drug Dosing 137.47 mL/min Estimated GFR (MDRD) > 60 Glucose 84 (70-99) mg/dL Calcium 8.4 L (8.5-10.1) mg/dL Corrected Calcium 9.4 (8.5-10.1) mg/dL Total Bilirubin 1.3 H (0.2-1.0) mg/dL AST 22 (15-37) U/L ALT 41 (16-63) U/L Alkaline Phosphatase 78 (46-116) U/L Total Protein 6.4 (6.4-8.2) g/dL Albumin 2.8 L (3.4-5.0) g/dL Globulin 3.6 Albumin/Globulin Ratio 0.78 Med Orders - Current: Current Medications Enoxaparin Sodium (Enoxaparin 40 Mg/0.4 Ml Syringe) 40 mg SUBCUT BEDTIME [facility] Last Admin: 07/09/21 19:37 Dose: 40 mg Documented by: Flumazenil (Flumazenil 0.1 Mg/Ml 5 Ml Mdv) 0.2 mg IVPUSH ASDIRECTED PRN PRN Reason: Respiratory Depression Hydromorphone HCl (Hydromorphone 1 Mg/Ml Syringe) 2 mg IVPUSH Q3H PRN PRN Reason: Pain Last Admin: 07/10/21 08:13 Dose: 2 mg Documented by: Potassium Chloride/Sodium Chloride (Normal Saline With 20 Meq Kcl) 1,000 mls @ 125 mls/hr IV ASDIRECTED [facility] Last Admin: 07/10/21 04:21 Dose: 125 mls/hr Documented by: Lorazepam (Lorazepam 2 Mg/Ml Sdv) 0.5 mg IVPUSH Q4H PRN PRN Reason: Anxiety Last Admin: 07/10/21 08:11 Dose: 0.5 mg Documented by: Ondansetron HCl (Ondansetron 4 Mg/2 Ml Sdv) 4 mg IVPUSH Q8H PRN PRN Reason: Nausea Last Admin: 07/10/21 08:12 Dose: 4 mg Documented by: Pantoprazole Sodium (Pantoprazole 40 Mg Vial) 40 mg IVPUSH DAILY [facility] Last Admin: 07/10/21 08:03 Dose: 40 mg Documented by: Sodium Chloride (Sodium Chloride 0.9% 10 Ml Syringe) 10 ml FLUSH ASDIRECTED PRN PRN Reason: Keep Vein Open Last Admin: 07/08/21 14:53 Dose: 10 ml Documented by: Thiamine HCl (Thiamine 200 Mg/2 Ml Mdv) 100 mg IV DAILY [facility] Stop: 07/10/21 23:00 Last Admin: 07/10/21 08:03 Dose: 100 mg Documented by: Discontinued Medications Hydromorphone HCl (Hydromorphone 1 Mg/Ml Syringe) 1 mg IVPUSH ONETIME ONE Stop: 07/08/21 04:32 Last Admin: 07/08/21 04:45 Dose: 1 mg Documented by: Hydromorphone HCl (Hydromorphone 1 Mg/Ml Syringe) 1 mg IVPUSH Q4H PRN PRN Reason: Pain Last Admin: 07/08/21 09:20 Dose: 1 mg Documented by: Hydromorphone HCl (Hydromorphone 1 Mg/Ml Syringe) 2 mg IVPUSH Q4H PRN PRN Reason: Pain Last Admin: 07/09/21 15:56 Dose: 2 mg Documented by: Sodium Chloride (Normal Saline) 1,000 mls @ 500 mls/hr IV ASDIRECTED [facility] Magnesium Sulfate 2 gm/ Premix 50 mls @ 25 mls/hr IV ONETIME ONE Stop: 07/08/21 10:30 Last Admin: 07/08/21 09:34 Dose: 25 mls/hr Documented by: Ketorolac Tromethamine (Ketorolac 15 Mg/Ml Sdv) 15 mg IVPUSH ONETIME ONE Stop: 07/08/21 06:50 Last Admin: 07/08/21 07:03 Dose: 15 mg Documented by: Morphine Sulfate (Morphine 4 Mg/Ml Syringe) 4 mg IVPUSH ONETIME ONE Stop: 07/08/21 05:44 Last Admin: 07/08/21 06:00 Dose: 4 mg Documented by: Morphine Sulfate (Morphine 4 Mg/Ml Syringe) 4 mg IVPUSH ONETIME ONE Stop: 07/08/21 06:57 Last Admin: 07/08/21 07:04 Dose: 4 mg Documented by: Ondansetron HCl (Ondansetron 4 Mg/2 Ml Sdv) 4 mg IVPUSH ONETIME ONE Stop: 07/08/21 04:32 Last Admin: 07/08/21 04:50 Dose: 4 mg Documented by: Polyethylene Glycol (Polyethylene Glycol 3350 Powder 17 Gm Packet) 17 gm PO ONETIME ONE Stop: 07/09/21 12:31 Last Admin: 07/09/21 12:53 Dose: 17 gm Documented by: - Exam General: Alert, Oriented, Cooperative, No Acute Distress HEENT: Mucous Membr. Moist/[place] Neck: Supple, Trachea Midline, No Thyromegaly. No: Lymphadenopathy Lungs: Clear to Auscultation, Normal Respiratory Effort Cardiovascular: Regular Rate, Regular Rhythm, No Murmurs GI/Abdominal Exam: Normal Bowel Sounds, Soft, No Organomegaly, No Distention, No Mass, Tender (only in the epigastrium today and less so than yesterday; no rebound, rigidity, or guarding) Extremities: Non-Tender, No Pedal Edema, Normal Capillary Refill Peripheral Pulses: 2+: Radial (L), Radial (R) Skin: Warm, Dry, Intact Neurological: No New Focal Deficit - Patient Data Lab Results Last 24 hrs: Laboratory Results - last 24 hr 07/10/21 07/10/21 Range/Units 06:30 06:30 WBC 14.1 H (4.0-10.0) x10^3/uL RBC 4.83 (4.5-6.0) x10^6/uL Hgb 15.5 (14.0-18.0) g/dL Hct 44.8 (40.0-52.0) % MCV 92.8 (78.0-93.0) fL MCH 32.1 H (26.0-32.0) pg MCHC 34.6 (32.0-36.0) g/dL RDW Coeff of Claudio 12.0 (10.0-15.0) % Plt Count 119 L (130-400) x10^3/uL Immature Gran % (Auto) 0.30 (0.00-0.43) % Neut % (Auto) 82.7 H (50.0-80.0) % Lymph % (Auto) 7.5 L (25.0-50.0) % [place] % (Auto) 8.3 (2.0-11.0) % Eos % (Auto) 1.1 (0.0-4.0) % Baso % (Auto) 0.1 L (0.2-1.2) % Neut # (Auto) 11.6 H (1.8-7.7) x10^3/uL Lymph # (Auto) 1.1 (1.0-4.8) x10^3/uL [place] # (Auto) 1.2 H (0.0-0.8) x10^3/uL Eos # (Auto) 0.2 (0.0-0.5) x10^3/uL Baso # (Auto) 0.0 (0.0-0.2) x10^3/uL Immature Gran # (Auto) 0.04 (0.00-0.07) x10^3/uL Sodium 136 (136-145) mmol/L Potassium 4.2 (3.5-5.1) mmol/L Chloride 103 (98-107) mmol/L Carbon Dioxide 25 (21-32) mmol/L Anion Gap 12.2 (5-15) mmol/L BUN 9 (7-18) mg/dL Creatinine 0.8 (0.70-1.30) mg/dL Est Cr Clr Drug Dosing 137.47 mL/min Estimated GFR (MDRD) > 60 Glucose 84 (70-99) mg/dL Calcium 8.4 L (8.5-10.1) mg/dL Corrected Calcium 9.4 (8.5-10.1) mg/dL Total Bilirubin 1.3 H (0.2-1.0) mg/dL AST 22 (15-37) U/L ALT 41 (16-63) U/L Alkaline Phosphatase 78 (46-116) U/L Total Protein 6.4 (6.4-8.2) g/dL Albumin 2.8 L (3.4-5.0) g/dL Globulin 3.6 Albumin/Globulin Ratio 0.78 Result Diagrams: 07/10/21 06:30 07/10/21 06:30 Sepsis Event Note - Evaluation Sepsis Screening Result: No Definite Risk - Focused Exam Vital Signs: Vital Signs Temp Pulse Resp BP Pulse Ox 07/10/21 10:00 36.7 C 90 18 152/81 H 95 07/10/21 06:00 36.6 C 98 16 141/85 H 96 - Problem List & Annotations (1) Pancreatitis SNOMED Code(s): 62575414 Code(s): K85.90 - ACUTE PANCREATITIS WITHOUT NECROSIS OR INFECTION, UNSP Status: Acute Current Visit: Yes (2) Alcohol use disorder SNOMED Code(s): 2735493 Code(s): AGZ4420 - Status: Acute Current Visit: Yes (3) Hepatitis SNOMED Code(s): 337501691 Code(s): K75.9 - INFLAMMATORY LIVER DISEASE, UNSPECIFIED Status: Acute Current Visit: Yes (4) Hypokalemia SNOMED Code(s): 19779998 Code(s): E87.6 - HYPOKALEMIA Status: Resolved Current Visit: Yes - Problem List Review Problem List Initiated/Reviewed/Updated: Yes - My Orders Last 24 Hours: My Active Orders 07/09/21 16:49 HYDROmorphone [Dilaudid] 2 mg IVPUSH Q3H PRN - Assessment Assessment:: 26 yo male hospital day #3 admitted with pancreatitis secondary to alcohol use. Doing somewhat better today clinically. Labs stable. - Plan Plan:: #1 Pancreatitis, secondary to #2 - Patient somewhat improved from yesterday. - Pain and nausea controlled. Continue current regimen. If he is able to eat/drink better today, will consider switching to PO pain control. - Continue clear liquids as he is unlikely to tolerate more than that at this point. Will start to advance once pain is improving. - Continue IV fluids as ordered. - U/S done 07/08 was negative for cholelithiasis. #2 Alcohol use disorder - Patient states he is done drinking. - However, will plan to get him set up with resources for d/c to help encourage him in these efforts. - Also could consider naltrexone for him as well if he is willing. #3 Hepatitis, secondary to #2 - Liver enzymes normal. - Will trend daily. #4 Hypokalemia, resolved - Will monitor daily. Patient will remain on acute today - anticipate d/c later this week. Discussed criteria for d/c would be on oral medications for pain/nausea control and able to take enough PO to stay hydrated. See detailed plans as above. Code status is full. On lovenox for VTE prophylaxis.
[2021-07-10] MEDS: Sodium Chloride 0.9% 10 ML Syringe FLUSH PRN ×3 (11:26→21:30)
[2021-07-10] MEDS: Enoxaparin 40 MG/0.4 ML Syringe SUBCUT SCH (20:01)
[2021-07-11] MEDS: Sodium Chloride 0.9% 10 ML Syringe FLUSH PRN ×9 (01:33→23:33)
[2021-07-11] MEDS: LORazepam 2 MG/ML SDV IVPUSH PRN (01:33)
[2021-07-11] MEDS: HYDROmorphone 1 MG/ML Syringe IVPUSH PRN ×7 (01:37→23:34)
[2021-07-11] MEDS: NS + KCl 20mEq/L 1,000 ML IV SCH ×3 (04:41→20:40)
[2021-07-11 06:57] LABS: CHLORIDE,CL 102 mmol/L (98-107); SODIUM,NA 138 mmol/L (136-145)
[2021-07-11 06:58] LABS: ANION GAP 12.3 mmol/L (5-15)
[2021-07-11] MEDS: Pantoprazole 40 MG Vial IVPUSH SCH (08:21)
[2021-07-11] MEDS: Ondansetron 4 MG/2 ML SDV IVPUSH PRN (08:21)
--- NOTE | 2021-07-11 08:30 | PCM.PN ---
- General Info Date of Service: 07/11/21 Subjective Update: 26 yo male hospital day #4 admitted with pancreatitis secondary to alcohol use disorder. Has been able to eat clear liquids over the past 24 hours without any nausea or vomiting. Still having the epigastric pain and fullness, which has been about the same after eating. Still no BM but he is passing gas. No fever. No other new symptoms. - Review of Systems General: Reports: No Symptoms HEENT: Reports: No Symptoms Pulmonary: Reports: No Symptoms Cardiovascular: Reports: No Symptoms Gastrointestinal: Reports: Abdominal Pain, Constipation. Denies: Nausea, Vomiting Genitourinary: Reports: No Symptoms Musculoskeletal: Reports: No Symptoms Skin: Reports: No Symptoms Neurological: Reports: No Symptoms - Patient Data Vitals - Most Recent: Last Vital Signs Temp 37.6 C 07/11/21 06:35 Pulse 97 07/11/21 06:35 Resp 20 07/11/21 01:35 BP 151/91 H 07/11/21 06:35 Pulse Ox 95 07/11/21 01:35 Weight - Most Recent: 104.734 kg I&O - Last 24 Hours: Intake & Output 07/10/21 07/11/21 07/11/21 22:59 06:59 14:59 Intake Total 1640 1612 120 Balance 1640 1612 120 Lab Results Last 24 Hours: Laboratory Results - last 24 hr 07/11/21 07/11/21 Range/Units 06:08 06:08 WBC 12.1 H (4.0-10.0) x10^3/uL RBC 4.55 (4.5-6.0) x10^6/uL Hgb 14.6 (14.0-18.0) g/dL Hct 43.0 (40.0-52.0) % MCV 94.5 H (78.0-93.0) fL MCH 32.1 H (26.0-32.0) pg MCHC 34.0 (32.0-36.0) g/dL RDW Coeff of Claudio 12.0 (10.0-15.0) % Plt Count 117 L (130-400) x10^3/uL Immature Gran % (Auto) 0.30 (0.00-0.43) % Neut % (Auto) 78.7 (50.0-80.0) % Lymph % (Auto) 9.0 L (25.0-50.0) % [place] % (Auto) 10.2 (2.0-11.0) % Eos % (Auto) 1.6 (0.0-4.0) % Baso % (Auto) 0.2 (0.2-1.2) % Neut # (Auto) 9.6 H (1.8-7.7) x10^3/uL Lymph # (Auto) 1.1 (1.0-4.8) x10^3/uL [place] # (Auto) 1.2 H (0.0-0.8) x10^3/uL Eos # (Auto) 0.2 (0.0-0.5) x10^3/uL Baso # (Auto) 0.0 (0.0-0.2) x10^3/uL Immature Gran # (Auto) 0.04 (0.00-0.07) x10^3/uL Sodium 138 (136-145) mmol/L Potassium 4.3 (3.5-5.1) mmol/L Chloride 102 (98-107) mmol/L Carbon Dioxide 28 (21-32) mmol/L Anion Gap 12.3 (5-15) mmol/L BUN 9 (7-18) mg/dL Creatinine 0.9 (0.70-1.30) mg/dL Est Cr Clr Drug Dosing 122.20 mL/min Estimated GFR (MDRD) > 60 Glucose 90 (70-99) mg/dL Calcium 8.5 (8.5-10.1) mg/dL Corrected Calcium 9.6 (8.5-10.1) mg/dL Total Bilirubin 1.1 H (0.2-1.0) mg/dL AST 25 (15-37) U/L ALT 36 (16-63) U/L Alkaline Phosphatase 76 (46-116) U/L Total Protein 6.4 (6.4-8.2) g/dL Albumin 2.6 L (3.4-5.0) g/dL Globulin 3.8 Albumin/Globulin Ratio 0.68 Med Orders - Current: Current Medications Enoxaparin Sodium (Enoxaparin 40 Mg/0.4 Ml Syringe) 40 mg SUBCUT BEDTIME [facility] Last Admin: 07/10/21 20:01 Dose: 40 mg Documented by: Flumazenil (Flumazenil 0.1 Mg/Ml 5 Ml Mdv) 0.2 mg IVPUSH ASDIRECTED PRN PRN Reason: Respiratory Depression Hydromorphone HCl (Hydromorphone 1 Mg/Ml Syringe) 2 mg IVPUSH Q3H PRN PRN Reason: Pain Last Admin: 07/11/21 04:46 Dose: 2 mg Documented by: Potassium Chloride/Sodium Chloride (Normal Saline With 20 Meq Kcl) 1,000 mls @ 125 mls/hr IV ASDIRECTED [facility] Last Admin: 07/11/21 04:41 Dose: 125 mls/hr Documented by: Ondansetron HCl (Ondansetron 4 Mg/2 Ml Sdv) 4 mg IVPUSH Q8H PRN PRN Reason: Nausea Last Admin: 07/11/21 08:21 Dose: 4 mg Documented by: Pantoprazole Sodium (Pantoprazole 40 Mg Vial) 40 mg IVPUSH DAILY [facility] Last Admin: 07/11/21 08:21 Dose: 40 mg Documented by: Polyethylene Glycol (Polyethylene Glycol 3350 Powder 17 Gm Packet) 17 gm PO BID [facility] Sodium Chloride (Sodium Chloride 0.9% 10 Ml Syringe) 10 ml FLUSH ASDIRECTED PRN PRN Reason: Keep Vein Open Last Admin: 07/11/21 08:21 Dose: 10 ml Documented by: Discontinued Medications Hydromorphone HCl (Hydromorphone 1 Mg/Ml Syringe) 1 mg IVPUSH ONETIME ONE Stop: 07/08/21 04:32 Last Admin: 07/08/21 04:45 Dose: 1 mg Documented by: Hydromorphone HCl (Hydromorphone 1 Mg/Ml Syringe) 1 mg IVPUSH Q4H PRN PRN Reason: Pain Last Admin: 07/08/21 09:20 Dose: 1 mg Documented by: Hydromorphone HCl (Hydromorphone 1 Mg/Ml Syringe) 2 mg IVPUSH Q4H PRN PRN Reason: Pain Last Admin: 07/09/21 15:56 Dose: 2 mg Documented by: Sodium Chloride (Normal Saline) 1,000 mls @ 500 mls/hr IV ASDIRECTED [facility] Magnesium Sulfate 2 gm/ Premix 50 mls @ 25 mls/hr IV ONETIME ONE Stop: 07/08/21 10:30 Last Admin: 07/08/21 09:34 Dose: 25 mls/hr Documented by: Ketorolac Tromethamine (Ketorolac 15 Mg/Ml Sdv) 15 mg IVPUSH ONETIME ONE Stop: 07/08/21 06:50 Last Admin: 07/08/21 07:03 Dose: 15 mg Documented by: Lorazepam (Lorazepam 2 Mg/Ml Sdv) 0.5 mg IVPUSH Q4H PRN PRN Reason: Anxiety Last Admin: 07/11/21 01:33 Dose: 0.5 mg Documented by: Morphine Sulfate (Morphine 4 Mg/Ml Syringe) 4 mg IVPUSH ONETIME ONE Stop: 07/08/21 05:44 Last Admin: 07/08/21 06:00 Dose: 4 mg Documented by: Morphine Sulfate (Morphine 4 Mg/Ml Syringe) 4 mg IVPUSH ONETIME ONE Stop: 07/08/21 06:57 Last Admin: 07/08/21 07:04 Dose: 4 mg Documented by: Ondansetron HCl (Ondansetron 4 Mg/2 Ml Sdv) 4 mg IVPUSH ONETIME ONE Stop: 07/08/21 04:32 Last Admin: 07/08/21 04:50 Dose: 4 mg Documented by: Polyethylene Glycol (Polyethylene Glycol 3350 Powder 17 Gm Packet) 17 gm PO ONETIME ONE Stop: 07/09/21 12:31 Last Admin: 07/09/21 12:53 Dose: 17 gm Documented by: Thiamine HCl (Thiamine 200 Mg/2 Ml Mdv) 100 mg IV DAILY [facility] Stop: 07/10/21 23:00 Last Admin: 07/10/21 08:03 Dose: 100 mg Documented by: - Exam General: Alert, Oriented, Cooperative, No Acute Distress HEENT: Mucous Membr. Moist/[place] Neck: Supple, Trachea Midline, No Thyromegaly. No: Lymphadenopathy Lungs: Clear to Auscultation, Normal Respiratory Effort Cardiovascular: Regular Rate, Regular Rhythm, No Murmurs GI/Abdominal Exam: Normal Bowel Sounds, Soft, No Organomegaly, No Distention, No Mass, Tender (in the epigastrium without rebound, rigidity, or guarding) Extremities: Normal Inspection, Normal Range of Motion, Non-Tender, No Pedal Edema, Normal Capillary Refill Peripheral Pulses: 2+: Radial (L), Radial (R) Skin: Warm, Dry, Intact Neurological: No New Focal Deficit - Patient Data Lab Results Last 24 hrs: Laboratory Results - last 24 hr 07/11/21 07/11/21 Range/Units 06:08 06:08 WBC 12.1 H (4.0-10.0) x10^3/uL RBC 4.55 (4.5-6.0) x10^6/uL Hgb 14.6 (14.0-18.0) g/dL Hct 43.0 (40.0-52.0) % MCV 94.5 H (78.0-93.0) fL MCH 32.1 H (26.0-32.0) pg MCHC 34.0 (32.0-36.0) g/dL RDW Coeff of Claudio 12.0 (10.0-15.0) % Plt Count 117 L (130-400) x10^3/uL Immature Gran % (Auto) 0.30 (0.00-0.43) % Neut % (Auto) 78.7 (50.0-80.0) % Lymph % (Auto) 9.0 L (25.0-50.0) % [place] % (Auto) 10.2 (2.0-11.0) % Eos % (Auto) 1.6 (0.0-4.0) % Baso % (Auto) 0.2 (0.2-1.2) % Neut # (Auto) 9.6 H (1.8-7.7) x10^3/uL Lymph # (Auto) 1.1 (1.0-4.8) x10^3/uL [place] # (Auto) 1.2 H (0.0-0.8) x10^3/uL Eos # (Auto) 0.2 (0.0-0.5) x10^3/uL Baso # (Auto) 0.0 (0.0-0.2) x10^3/uL Immature Gran # (Auto) 0.04 (0.00-0.07) x10^3/uL Sodium 138 (136-145) mmol/L Potassium 4.3 (3.5-5.1) mmol/L Chloride 102 (98-107) mmol/L Carbon Dioxide 28 (21-32) mmol/L Anion Gap 12.3 (5-15) mmol/L BUN 9 (7-18) mg/dL Creatinine 0.9 (0.70-1.30) mg/dL Est Cr Clr Drug Dosing 122.20 mL/min Estimated GFR (MDRD) > 60 Glucose 90 (70-99) mg/dL Calcium 8.5 (8.5-10.1) mg/dL Corrected Calcium 9.6 (8.5-10.1) mg/dL Total Bilirubin 1.1 H (0.2-1.0) mg/dL AST 25 (15-37) U/L ALT 36 (16-63) U/L Alkaline Phosphatase 76 (46-116) U/L Total Protein 6.4 (6.4-8.2) g/dL Albumin 2.6 L (3.4-5.0) g/dL Globulin 3.8 Albumin/Globulin Ratio 0.68 Result Diagrams: 07/11/21 06:08 07/11/21 06:08 Sepsis Event Note - Evaluation Sepsis Screening Result: No Definite Risk - Focused Exam Vital Signs: Vital Signs Temp Pulse Resp BP Pulse Ox 07/11/21 06:35 37.6 C 97 151/91 H 07/11/21 01:35 36.6 C 98 20 148/70 H 95 07/10/21 21:15 36.5 C 106 H 18 144/85 H 95 - Problem List & Annotations (1) Pancreatitis SNOMED Code(s): 21994160 Code(s): K85.90 - ACUTE PANCREATITIS WITHOUT NECROSIS OR INFECTION, UNSP Status: Acute Current Visit: Yes (2) Alcohol use disorder SNOMED Code(s): 9222502 Code(s): QZW2592 - Status: Acute Current Visit: Yes (3) Hepatitis SNOMED Code(s): 883650176 Code(s): K75.9 - INFLAMMATORY LIVER DISEASE, UNSPECIFIED Status: Acute Current Visit: Yes (4) Hypokalemia SNOMED Code(s): 49526819 Code(s): E87.6 - HYPOKALEMIA Status: Resolved Current Visit: Yes - Problem List Review Problem List Initiated/Reviewed/Updated: Yes - My Orders Last 24 Hours: My Active Orders 07/11/21 08:30 polyethylene glycoL 3350 [MiraLAX] 17 gm PO BID 07/12/21 05:11 CBC WITH AUTO DIFF [HEME] Routine COMPREHENSIVE METABOLIC PN,CMP [CHEM] Routine - Assessment Assessment:: 26 yo male hospital day #4 admitted with pancreatitis secondary to alcohol use. Labs better today. He is slowly improving. - Plan Plan:: #1 Pancreatitis, secondary to #2 #2 Constipation - Doing better today. - Suspect main issue contributing is the constipation vs ileus. Will do another dose of miralax today. If that is not effective, will plan x-ray abdomen to evaluate for ileus. - Pain and nausea controlled. Continue current regimen. He does not feel he will tolerate PO pain medication yet but feels this may be possible this pm, especially if he has a BM. - Continue clear liquids as he is unlikely to tolerate more than that at this point. Will consider advancing later today. - Continue IV fluids as ordered. - U/S done 07/08 was negative for cholelithiasis. #3 Alcohol use disorder - Patient states he is done drinking. - However, will plan to get him set up with resources for d/c to help encourage him in these efforts. - Also could consider naltrexone for him as well if he is willing. #4 Hepatitis, secondary to #2 - Liver enzymes remain normal. - Will trend daily. #4 Hypokalemia, resolved - Will monitor daily. Patient will remain on acute today - anticipate d/c in the next 24-48 hours. Di scussed criteria for d/c would be on oral medications for pain/nausea control and able to take enough PO to stay hydrated. See detailed plans as above. Code status is full. On lovenox for VTE prophylaxis.
[2021-07-11] MEDS: Polyethylene Glycol 3350 Powder 17 GM Packet PO SCH ×2 (08:35→20:22)
[2021-07-11] MEDS: Enoxaparin 40 MG/0.4 ML Syringe SUBCUT SCH (19:45)
[2021-07-12] MEDS: Sodium Chloride 0.9% 10 ML Syringe FLUSH PRN ×3 (03:35→22:40)
[2021-07-12] MEDS: HYDROmorphone 1 MG/ML Syringe IVPUSH PRN ×6 (03:36→22:34)
[2021-07-12 07:14] LABS: ANION GAP 14.3 mmol/L (5-15); CHLORIDE,CL 101 mmol/L (98-107); SODIUM,NA 139 mmol/L (136-145)
[2021-07-12] MEDS: Polyethylene Glycol 3350 Powder 17 GM Packet PO SCH ×3 (07:37→20:18)
[2021-07-12] MEDS: Pantoprazole 40 MG Vial IVPUSH SCH (07:37)
--- NOTE | 2021-07-12 08:31 | PCM.PN ---
- General Info Date of Service: 07/12/21 Subjective Update: 26 yo male hospital day #5 admitted with pancreatitis secondary to alcohol use. Patient states he is not feeling as well this morning. Likely overdid it with mitchell pper last night and had more pain about an hour later. No nausea or vomiting still. Breakfast so far is going ok. Still has that constant fullness sensation in the epigastrium with occasional episodes of more sharp pain. No fever. His lorazepam was discontinued yesterday as he was out of the withdrawal window. However, he is wondering about something for anxiety because he sometimes feels anxious from the pressure from the epigastrium that leads him to feel short of breath. He has had multiple bowel movements over the past 24 hours. - Review of Systems General: Reports: No Symptoms HEENT: Reports: No Symptoms Pulmonary: Reports: No Symptoms Cardiovascular: Reports: No Symptoms Gastrointestinal: Reports: Abdominal Pain. Denies: Constipation, Diarrhea, Nausea, Vomiting Genitourinary: Reports: No Symptoms Musculoskeletal: Reports: No Symptoms Skin: Reports: No Symptoms Neurological: Reports: No Symptoms Psychiatric: Reports: Anxiety - Patient Data Vitals - Most Recent: Last Vital Signs Temp 36.6 C 07/12/21 06:40 Pulse 102 H 07/12/21 06:40 Resp 18 07/12/21 06:40 BP 148/92 H 07/12/21 06:40 Pulse Ox 94 L 07/12/21 06:40 Weight - Most Recent: 104.734 kg I&O - Last 24 Hours: Intake & Output 07/11/21 07/12/21 07/12/21 22:59 06:59 14:59 Intake Total 2070 1200 120 Balance 2070 1200 120 Lab Results Last 24 Hours: Laboratory Results - last 24 hr 07/12/21 07/12/21 Range/Units 06:33 06:33 WBC 12.5 H (4.0-10.0) x10^3/uL RBC 4.69 (4.5-6.0) x10^6/uL Hgb 15.0 (14.0-18.0) g/dL Hct 44.5 (40.0-52.0) % MCV 94.9 H (78.0-93.0) fL MCH 32.0 (26.0-32.0) pg MCHC 33.7 (32.0-36.0) g/dL RDW Coeff of Claudio 12.0 (10.0-15.0) % Plt Count 158 (130-400) x10^3/uL Immature Gran % (Auto) 0.70 H (0.00-0.43) % Neut % (Auto) 76.7 (50.0-80.0) % Lymph % (Auto) 9.1 L (25.0-50.0) % [place] % (Auto) 11.9 H (2.0-11.0) % Eos % (Auto) 1.4 (0.0-4.0) % Baso % (Auto) 0.2 (0.2-1.2) % Neut # (Auto) 9.6 H (1.8-7.7) x10^3/uL Lymph # (Auto) 1.1 (1.0-4.8) x10^3/uL [place] # (Auto) 1.5 H (0.0-0.8) x10^3/uL Eos # (Auto) 0.2 (0.0-0.5) x10^3/uL Baso # (Auto) 0.0 (0.0-0.2) x10^3/uL Immature Gran # (Auto) 0.09 H (0.00-0.07) x10^3/uL Sodium 139 (136-145) mmol/L Potassium 4.3 (3.5-5.1) mmol/L Chloride 101 (98-107) mmol/L Carbon Dioxide 28 (21-32) mmol/L Anion Gap 14.3 (5-15) mmol/L BUN 10 (7-18) mg/dL Creatinine 0.9 (0.70-1.30) mg/dL Est Cr Clr Drug Dosing 122.20 mL/min Estimated GFR (MDRD) > 60 Glucose 96 (70-99) mg/dL Calcium 8.8 (8.5-10.1) mg/dL Corrected Calcium 9.8 (8.5-10.1) mg/dL Total Bilirubin 1.0 (0.2-1.0) mg/dL AST 34 (15-37) U/L ALT 49 (16-63) U/L Alkaline Phosphatase 86 (46-116) U/L Total Protein 6.9 (6.4-8.2) g/dL Albumin 2.7 L (3.4-5.0) g/dL Globulin 4.2 Albumin/Globulin Ratio 0.64 Med Orders - Current: Current Medications Enoxaparin Sodium (Enoxaparin 40 Mg/0.4 Ml Syringe) 40 mg SUBCUT BEDTIME [facility] Last Admin: 07/11/21 19:45 Dose: 40 mg Documented by: Flumazenil (Flumazenil 0.1 Mg/Ml 5 Ml Mdv) 0.2 mg IVPUSH ASDIRECTED PRN PRN Reason: Respiratory Depression Hydromorphone HCl (Hydromorphone 1 Mg/Ml Syringe) 2 mg IVPUSH Q3H PRN PRN Reason: Pain Last Admin: 07/12/21 03:36 Dose: 2 mg Documented by: Potassium Chloride/Sodium Chloride (Normal Saline With 20 Meq Kcl) 1,000 mls @ 125 mls/hr IV ASDIRECTED [facility] Last Admin: 07/11/21 20:40 Dose: 125 mls/hr Documented by: Ondansetron HCl (Ondansetron 4 Mg/2 Ml Sdv) 4 mg IVPUSH Q8H PRN PRN Reason: Nausea Last Admin: 07/11/21 08:21 Dose: 4 mg Documented by: Pantoprazole Sodium (Pantoprazole 40 Mg Vial) 40 mg IVPUSH DAILY [facility] Last Admin: 07/12/21 07:37 Dose: 40 mg Documented by: Polyethylene Glycol (Polyethylene Glycol 3350 Powder 17 Gm Packet) 17 gm PO BID [facility] Last Admin: 07/12/21 07:37 Dose: Not Given Documented by: Sodium Chloride (Sodium Chloride 0.9% 10 Ml Syringe) 10 ml FLUSH ASDIRECTED PRN PRN Reason: Keep Vein Open Last Admin: 07/12/21 03:35 Dose: 10 ml Documented by: Discontinued Medications Hydromorphone HCl (Hydromorphone 1 Mg/Ml Syringe) 1 mg IVPUSH ONETIME ONE Stop: 07/08/21 04:32 Last Admin: 07/08/21 04:45 Dose: 1 mg Documented by: Hydromorphone HCl (Hydromorphone 1 Mg/Ml Syringe) 1 mg IVPUSH Q4H PRN PRN Reason: Pain Last Admin: 07/08/21 09:20 Dose: 1 mg Documented by: Hydromorphone HCl (Hydromorphone 1 Mg/Ml Syringe) 2 mg IVPUSH Q4H PRN PRN Reason: Pain Last Admin: 07/09/21 15:56 Dose: 2 mg Documented by: Sodium Chloride (Normal Saline) 1,000 mls @ 500 mls/hr IV ASDIRECTED [facility] Magnesium Sulfate 2 gm/ Premix 50 mls @ 25 mls/hr IV ONETIME ONE Stop: 07/08/21 10:30 Last Admin: 07/08/21 09:34 Dose: 25 mls/hr Documented by: Ketorolac Tromethamine (Ketorolac 15 Mg/Ml Sdv) 15 mg IVPUSH ONETIME ONE Stop: 07/08/21 06:50 Last Admin: 07/08/21 07:03 Dose: 15 mg Documented by: Lorazepam (Lorazepam 2 Mg/Ml Sdv) 0.5 mg IVPUSH Q4H PRN PRN Reason: Anxiety Last Admin: 07/11/21 01:33 Dose: 0.5 mg Documented by: Morphine Sulfate (Morphine 4 Mg/Ml Syringe) 4 mg IVPUSH ONETIME ONE Stop: 07/08/21 05:44 Last Admin: 07/08/21 06:00 Dose: 4 mg Documented by: Morphine Sulfate (Morphine 4 Mg/Ml Syringe) 4 mg IVPUSH ONETIME ONE Stop: 07/08/21 06:57 Last Admin: 07/08/21 07:04 Dose: 4 mg Documented by: Ondansetron HCl (Ondansetron 4 Mg/2 Ml Sdv) 4 mg IVPUSH ONETIME ONE Stop: 07/08/21 04:32 Last Admin: 07/08/21 04:50 Dose: 4 mg Documented by: Polyethylene Glycol (Polyethylene Glycol 3350 Powder 17 Gm Packet) 17 gm PO ONETIME ONE Stop: 07/09/21 12:31 Last Admin: 07/09/21 12:53 Dose: 17 gm Documented by: Thiamine HCl (Thiamine 200 Mg/2 Ml Mdv) 100 mg IV DAILY [facility] Stop: 07/10/21 23:00 Last Admin: 07/10/21 08:03 Dose: 100 mg Documented by: - Exam General: Alert, Oriented, Cooperative, No Acute Distress HEENT: Mucous Membr. Moist/[place] Neck: Supple, Trachea Midline, No Thyromegaly. No: Lymphadenopathy Lungs: Clear to Auscultation, Normal Respiratory Effort Cardiovascular: Regular Rate, Regular Rhythm, No Murmurs GI/Abdominal Exam: Normal Bowel Sounds, Soft, No Organomegaly, No Distention, No Mass, Tender (epigastrium and LUQ; no rebound, rigidity, or guarding) Extremities: Normal Inspection, Normal Range of Motion, Non-Tender, No Pedal Edema, Normal Capillary Refill Peripheral Pulses: 2+: Radial (L), Radial (R) Skin: Warm, Dry, Intact Neurological: No New Focal Deficit - Patient Data Lab Results Last 24 hrs: Laboratory Results - last 24 hr 07/12/21 07/12/21 Range/Units 06:33 06:33 WBC 12.5 H (4.0-10.0) x10^3/uL RBC 4.69 (4.5-6.0) x10^6/uL Hgb 15.0 (14.0-18.0) g/dL Hct 44.5 (40.0-52.0) % MCV 94.9 H (78.0-93.0) fL MCH 32.0 (26.0-32.0) pg MCHC 33.7 (32.0-36.0) g/dL RDW Coeff of Claudio 12.0 (10.0-15.0) % Plt Count 158 (130-400) x10^3/uL Immature Gran % (Auto) 0.70 H (0.00-0.43) % Neut % (Auto) 76.7 (50.0-80.0) % Lymph % (Auto) 9.1 L (25.0-50.0) % [place] % (Auto) 11.9 H (2.0-11.0) % Eos % (Auto) 1.4 (0.0-4.0) % Baso % (Auto) 0.2 (0.2-1.2) % Neut # (Auto) 9.6 H (1.8-7.7) x10^3/uL Lymph # (Auto) 1.1 (1.0-4.8) x10^3/uL [place] # (Auto) 1.5 H (0.0-0.8) x10^3/uL Eos # (Auto) 0.2 (0.0-0.5) x10^3/uL Baso # (Auto) 0.0 (0.0-0.2) x10^3/uL Immature Gran # (Auto) 0.09 H (0.00-0.07) x10^3/uL Sodium 139 (136-145) mmol/L Potassium 4.3 (3.5-5.1) mmol/L Chloride 101 (98-107) mmol/L Carbon Dioxide 28 (21-32) mmol/L Anion Gap 14.3 (5-15) mmol/L BUN 10 (7-18) mg/dL Creatinine 0.9 (0.70-1.30) mg/dL Est Cr Clr Drug Dosing 122.20 mL/min Estimated GFR (MDRD) > 60 Glucose 96 (70-99) mg/dL Calcium 8.8 (8.5-10.1) mg/dL Corrected Calcium 9.8 (8.5-10.1) mg/dL Total Bilirubin 1.0 (0.2-1.0) mg/dL AST 34 (15-37) U/L ALT 49 (16-63) U/L Alkaline Phosphatase 86 (46-116) U/L Total Protein 6.9 (6.4-8.2) g/dL Albumin 2.7 L (3.4-5.0) g/dL Globulin 4.2 Albumin/Globulin Ratio 0.64 Result Diagrams: 07/12/21 06:33 07/12/21 06:33 Sepsis Event Note - Evaluation Sepsis Screening Result: No Definite Risk - Focused Exam Vital Signs: Vital Signs Temp Pulse Resp BP Pulse Ox 07/12/21 06:40 36.6 C 102 H 18 148/92 H 94 L 07/12/21 01:28 37.1 C 98 16 147/78 H 92 L 07/11/21 22:00 36.6 C 97 18 151/85 H 94 L - Problem List & Annotations (1) Pancreatitis SNOMED Code(s): 19692592 Code(s): K85.90 - ACUTE PANCREATITIS WITHOUT NECROSIS OR INFECTION, UNSP Status: Acute Current Visit: Yes (2) Constipation SNOMED Code(s): 00953320 Code(s): K59.00 - CONSTIPATION, UNSPECIFIED Status: Acute Current Visit: Yes Qualifiers: Constipation type: unspecified constipation type Qualified Code(s): K59.00 - Constipation, unspecified (3) Alcohol use disorder SNOMED Code(s): 5039687 Code(s): RRI6477 - Status: Acute Current Visit: Yes (4) Anxiety SNOMED Code(s): 62317542 Code(s): F41.9 - ANXIETY DISORDER, UNSPECIFIED Status: Chronic Current Visit: Yes (5) Hepatitis SNOMED Code(s): 830391396 Code(s): K75.9 - INFLAMMATORY LIVER DISEASE, UNSPECIFIED Status: Acute Current Visit: Yes (6) Hypokalemia SNOMED Code(s): 46971476 Code(s): E87.6 - HYPOKALEMIA Status: Resolved Current Visit: Yes - Problem List Review Problem List Initiated/Reviewed/Updated: Yes - My Orders Last 24 Hours: My Active Orders 07/11/21 08:30 polyethylene glycoL 3350 [MiraLAX] 17 gm PO BID 07/12/21 Breakfast Advance Diet Instructions [DIET] - Assessment Assessment:: 26 yo male hospital day #5 admitted with pancreatitis secondary to alcohol use. Labs stable. He continues with slow improvement. - Plan Plan:: #1 Pancreatitis, secondary to #3 #2 Constipation, resolved - Doing better today. - Now having regular bowel movements. - Discussed taking it easy with the diet but will not restrict to clear liquids again at this time. - Pain and nausea controlled. Continue current regimen. - D/C IV fluids as he is taking PO well. - U/S done 07/08 was negative for cholelithiasis. #3 Alcohol use disorder - Patient states he is done drinking. - However, will plan to get him set up with resources for d/c to help encourage him in these efforts. - Also could consider naltrexone for him as well if he is willing. #4 Anxiety - Will add hydroxyzine PRN. #5 Hepatitis, secondary to #2 - Liver enzymes remain normal. - Will trend daily. #6 Hypokalemia, resolved - Will monitor daily. Patient will remain on acute today - possible d/c tomorrow but discussed it will be day by day. He will pass 96 hours today but does not require transfer to a higher level of care as he is improving at this time. He also is not ready for d/c home yet - hopefully over the weekend. See detailed plans as above. Code status is full. On lovenox for VTE prophylaxis.
[2021-07-12] MEDS: NS + KCl 20mEq/L 1,000 ML IV SCH (09:00)
[2021-07-12] MEDS: Enoxaparin 40 MG/0.4 ML Syringe SUBCUT SCH (19:33)
[2021-07-12] MEDS ORDERED: Nicotine 14 MG/24 Hr Patch TRDERM ONE (20:19)
[2021-07-12] MEDS: hydrOXYzine HCl 25 MG Tab PO PRN (20:30)
[2021-07-13] MEDS: HYDROmorphone 1 MG/ML Syringe IVPUSH PRN (04:42)
[2021-07-13] MEDS: Sodium Chloride 0.9% 10 ML Syringe FLUSH PRN (04:48)
[2021-07-13 08:14] LABS: CHLORIDE,CL 101 mmol/L (98-107); SODIUM,NA 138 mmol/L (136-145)
[2021-07-13 08:16] LABS: ANION GAP 13.5 mmol/L (5-15)
[2021-07-13] MEDS ORDERED: Ketorolac 30 MG/ML SDV IVPUSH ONE (08:35)
[2021-07-13] MEDS: Polyethylene Glycol 3350 Powder 17 GM Packet PO SCH (08:45)
[2021-07-13] MEDS: hydrOXYzine HCl 25 MG Tab PO PRN (08:47)
[2021-07-13] MEDS: Pantoprazole 40 MG Vial IVPUSH SCH (08:48)
--- NOTE | 2021-07-13 10:09 | DISCH ---
PRIMARY DISCHARGE DIAGNOSES: 1. Acute pancreatitis due to alcohol use. 2. Hypomagnesemia and hypokalemia, replaced. 3. Constipation, resolved. 4. Anxiety. 5. Hepatitis due to alcohol intake with improving liver enzymes. 6. Alcohol abuse. He had no significant withdrawals during his stay, sounds like he drinks about 10 vodka drinks per day. 7. Leukocytosis, probably due to pancreatitis. He did have a low-grade fever on 07/12/2021 at 6 p.m. of 100.5 but nothing further. 8. Smoking. REASON FOR ADMISSION: On the date of admission, this 26-year-old male presented to the emergency room with abdominal pain. For the past 2 days, he had not been drinking due to his symptoms. He had thrown up but no blood. HOSPITAL COURSE: The patient was admitted. He was kept n.p.o. initially and given IV fluids and IV pain control. He did have an abdominal CT, which along with an elevated lipase did confirm the pancreatitis. He also had diffuse hepatic steatosis. Eventually, the patient started feeling better and he was started on clear liquids and his diet was advanced. He was still using IV Dilaudid but last evening just used 1 dose at 4 a.m. but had used 10 mg on the previous date. He was also getting some IV Ativan for anxiety and to help with sleep at night but that has now been switched over to Atarax, which he got last evening. He developed some left shoulder pain yesterday and is requesting something for pain this morning, so we will get a dose of Toradol. He was also empirically given IV Protonix during his stay. He was placed on a nicotine patch. He was having just some shortness of breath throughout his stay and the fact that taking a deep breath caused some more pain. Otherwise, he was not coughing. He has no history of lung disease or pneumonia. He was getting MiraLAX to have bowel movements, but then now, he declined it yesterday. PHYSICAL EXAMINATION: Vital Signs: Discharging vitals include a temperature of 97.7, pulse 112, respiratory rate 20, O2 of 92% on room air, and blood pressure 125/75. General: He is in no acute distress. Heart: Regular rate and rhythm. S1, S2 without murmur. Lungs: Lung sounds are clear to auscultation bilaterally without crackles or wheezes. Abdomen: Has positive bowel sounds. Soft, nondistended but tenderness in the mid epigastric and periumbilical area. No rebound. No guarding. Extremities: Warm and dry. No edema. In the left shoulder, there is some tenderness more towards the AC joint. He has some range of motion, full abduction. There is no redness, no warmth. Mental Status: He is alert and orientated x3. DISCHARGE PLANS AND INSTRUCTIONS: He will follow up in 1 to [address] Smiley in the clinic. At this point, lab work looked okay, so nothing is due as long as he improves. He will use a nicotine patch 21 mg daily during the day and off at night. He may return to work Thursday. He is recommended for low-fat diet. No alcohol. Recommended to look into AA and alcohol treatment services through [facility]. He was given a script for 12 Dilaudid 2 mg tablets every 4 hours as needed for pain. He may use the hydroxyzine as needed for anxiety and sleep and MiraLAX if needed for constipation. MKA: 07/13/2021 08:52:36 MODL: 07/13/2021 10:02:16 /[id number]
== END 2021-07-13 09:55 | disposition home or self-care (01) | DRG 439 ==
LOC: VM.ED 04:29 → VM.MS 07:22
PROVIDERS: ADMIT Internal Medicine; ATTEND Family Medicine
DX: K85.20 Alcohol induced acute pancreatitis without necrosis or infection (principal); F10.288 Alcohol dependence with other alcohol-induced disorder; E83.42 Hypomagnesemia; E87.6 Hypokalemia; K59.00 Constipation, unspecified; F41.9 Anxiety disorder, unspecified; K70.10 Alcoholic hepatitis without ascites; K76.0 Fatty (change of) liver, not elsewhere classified; Z20.822 Contact with and (suspected) exposure to COVID-19
CPT/HCPCS: 36415; 74177; 76705; 80053; 80307; 83605; 83690; 83735; 84100; 85025; 85610; 85730; 86140; 96374; 96375; 96376; 99284; 99285-25; A9270-GY; C9113; J1170; J1650; J1885; J2060; J2270; J2405; J3411; J3475; J3480; U0002

== ENCOUNTER 2022-07-05 04:03 | Emergency (ER) | payer MEDICAID ==
[2022-07-05] MEDS ORDERED: Take Home: Amoxicillin/Clavulanate K 875-125 MG Tab, 2 Tab Pack PO ONE (04:07)
[2022-07-05] MEDS ORDERED: Ketorolac 30 MG/ML SDV IM ONE (04:07)
== END 2022-07-05 04:29 | disposition home or self-care (01) ==
LOC: VM.ED 04:03
DX: K04.7 Periapical abscess without sinus (principal)
CPT/HCPCS: 96372; 99282; 99283; A9270; J1885